=== PATIENT | female | born 1960 | race Caucasian/White ===

== ENCOUNTER 2016-12-23 21:58 | Emergency (ER) | payer OTHER ==
--- NOTE | 2016-12-23 22:27 | ERNOTE ---
Dyspnea - Date Date of Service: 12/23/16 - General Presenting Symptoms: shortness of breath, other - dry cough Source: patient - Immun/Allergies/Home Medications Immunizations: IMMUNIZATION HX Immunizations Up to Date No History of Influenza Vaccine No Hx Pneumococcal Vaccination No Allergies/Adverse Reactions: Allergies nitrofurantoin [From Macrobid] Allergy (Severe, Verified 10/29/16 17:58) Hives nitrofurantoin macrocrystalline [From Macrobid] Allergy (Severe, Verified 17:58) Hives, fever Tetanus Vaccines & Toxoid [Tetanus] Allergy (Severe, Verified 10/29/16 17:58) fever fever, swelling amitriptyline Adverse Reaction (Severe, Verified 10/29/16 17:58) Suicidal, hospitalized metformin Adverse Reaction (Severe, Verified 10/29/16 17:58) Rash morphine Adverse Reaction (Severe, Verified 10/29/16 17:58) Vomiting Home Medications: HOME MEDICATIONS glipiZIDE [Glucotrol] 5 mg PO BIDAC 04/10/15 [Last Taken 07/16/16 07:00] Atorvastatin Calcium [Lipitor] 10 mg PO DAILY 09/04/15 [Last Taken 07/16/16 07: 00] Insulin NPH Hum/Reg Insulin Hm [Humulin 70-30] 16 unit SC BID 07/09/16 [Last Taken 07/16/16 07:00] Cyclobenzaprine HCl [Flexeril] 10 mg PO DAILY 10/25/16 [Last Taken Unknown] Rivaroxaban [Xarelto] 20 mg PO DAILY 10/25/16 [Last Taken Unknown] Sertraline HCl [Zoloft] 50 mg PO DAILY 10/25/16 [Last Taken Unknown] Albuterol Sulfate [Proventil Hfa] 6.7 gm IH PRN PRN #1 [email or web address] 12/23/16 [ Last Taken Unknown] - History of Present Illness Narrative: Here for swelling in right ankle for two months. Shortness of breath and cough for two weeks Review of Systems - Review of Systems Constitutional: Present: See HPI EYE: Present: see HPI ENT: Present: See HPI Respiratory: Present: See HPI Cardiology: Present: no symptoms reported Gastrointestinal/Abdominal: Present: See HPI - Patient's Past Medical History Patient History - Medical: Diabetes Type 2, Hypothyroidism, Kidney stone, Obesity, Other Patient History - Cardiac/Respiratory: Hypertension, Hyperlipidemia, Pulmonary Embolism Patient History - Cancer: No Hx of Cancer Patient History - Surgical Procedures: Appendectomy, Colonoscopy, , EGD , T & A Patient History - Other: None LMP (Calendar): 06/08/16 - Family History Father Family History - Medical: Family History - Cardiac/Respiratory: CHF, Myocardial Infarction Mother Family History - Medical: Diabetes Type 2 Insulin Dependent Family History - Cardiac/Respiratory: COPD - Social History Living Situations: home Abuse History: No History of abuse Psych History: Hx of Anxiety, Hx of Depression Smoking Status: Never smoker Alcohol Use: none Drug Use: none - Immunizations Immunizations Up to Date: No Hx Pneumococcal Vaccination: No History of Influenza Vaccine: No Physical Exam - Physical Exam Narrative: pt is morbidly obese General Appearance: Present: wd/wn, alert, no apparent distress Eye Exam: Normal inspection: bilateral, PERRL: bilateral, EOMI: bilateral Ears, Nose, Throat: Present: normal ENT inspection, hearing grossly normal Neck: Present: normal inspection, nontender Respiratory: Present: no respiratory distress, normal breath sounds, no accessory muscle use, other - no respiratory distress. PT is at 96 % at room air. She has NO wheezing anywhere. Cardiovascular/Chest: Present: regular rate, rhythm Extremity Exam: Present: non-tender - Bilateral dependent edema noted. This is NOT an acute finding ED Progress - Results and Orders Patient's Lab Results:: I have reviewed the patient's lab results. - Vital Signs Patient's Vital Signs:: I have reviewed the patient's vital signs. Vital Signs: Vital Signs 12/23/16 22:05 Temperature 36.6 C Pulse Rate 99 Respiratory 22 H Rate Blood Pressure 149/81 O2 Sat by Pulse 96 Oximetry - X-Ray X-Ray #1 X-Ray: chest - Progress/Reassessment Chief Complaint: Dyspnea Plan - Plan Plan: All tests are negative , ddimer is negative Troponin is negative CXR is normal. Will Rx an inhaler but pt appears to be stable at this time Departure Clinical Impression: Cough Allergic reaction Qualifiers: Encounter type: initial encounter Qualified Code(s): T78.40XA - Allergy, unspecified, initial encounter - Departure Disposition: Home self-care Condition: Good Instructions: Cough, Adult, [id number] Prescriptions: Albuterol Sulfate [Proventil Hfa] 6.7 gm IH PRN PRN #1 [email or web address] PRN Reason: Cough
[2016-12-23 22:43] LABS: Hematocrit 47.6 % (37.0-47.0); Hemoglobin 15.5 gm/dL (12.5-16.0); Mean Cell Volume 84.5 fl (78-100); Mean Corpuscular Hemoglobin 27.5 pg (27-31); Mean Corpuscular Hgb Conc 32.6 g/dl (32-36); Neutrophil # 6.1 K/mm3 (1.3-6.0); Neutrophil % 69.5 % (42-75.0); Platelet Count 141 K/mm3 (150-450); Red Blood Count 5.63 M/mm3 (4.2-5.4); Red Cell Distribution Width 14.3 % (11.5-14.0); White Blood Count 8.8 K/mm3 (4.0-10.5)
[2016-12-23 23:02] LABS: Troponin I Less than 0.017 ng/ml (0.00-0.10)
[2016-12-23 23:06] LABS: ALT 41 U/L (19-67); AST 28 U/L (0-48); Albumin * 3.4 gm/dl (3.4-5.0); Alkaline Phosphatase * 143 U/L (50-170); Anion Gap 16.7 mmol/L (6.8-13.8); BNP * 13 pg/mL (5-150); BUN/Creatinine Ratio 19.5 (9.0-21.6); Bilirubin, Total 0.5 mg/dL (0.0-1.1); Blood Urea Nitrogen 16 mg/dL (3-23); CKMB 1.2 ng/mL (0.0-9.0); Ca. Corrected For Albumin 9.5 mg/dL (8.4-10.2); Calcium * 9.3 mg/dL (7.9-10.9); Carbon Dioxide 23.6 mmol/L (24-32.6); Chloride 99 mmol/L (97-106); Glucose * 433 mg/dL (70-110); Potassium 4.3 mmol/L (3.4-4.6); Sodium 135 mmol/L (132-142); Total Protein 7.4 gm/dL (6.2-8.2)
[2016-12-24 06:57] VITALS: BP 134/77
== END 2016-12-23 23:40 | disposition home or self-care (01) ==
LOC: ER 21:58
DX: T78.40XA Allergy, unspecified, initial encounter (principal); R05 Cough; Z87.442 Personal history of urinary calculi

== ENCOUNTER 2017-01-03 09:35 | Emergency (ER) | payer OTHER ==
[2017-01-03] MEDS ORDERED: KETOROLAC TROMETHAMINE 60 MG/2 ML VIAL IM ONE ×2 (10:14→10:17)
[2017-01-03] MEDS ORDERED: DIAZEPAM 5 MG/ML SYRG IM ONE (10:14)
[2017-01-03] MEDS ORDERED: DIAZEPAM 5 MG/ML SYRG ONE (10:16)
--- OUTSIDE RECORDS SUMMARY | 2017-01-03 10:21 | XMS REPORT | Continuity of Care Document ---
:1960 Author Organization [facility] ([facility]) Address [address] [place] [address] Phone [phone] Care Team Providers Name Role Phone Jorge Perkins Primary Care Provider [phone] Source Comments This disclosure is being made pursuant to the Care Everywhere program, applicable federal and state laws, and may not contain all informaitonavailable regarding this patient.[facility] ([facility]) Active Allergies and Adverse Reactions Allergen Noted Date Severity Reactions Comments Metformin 12/28/2016 Rash Morphine 12/28/2016 OTHER Nitrofurantoin Monohyd/M-Cryst 01/01/2013 Urticaria (Hives) Tetanus Toxoid 01/01/2013 Fever Made very sick Current Medications Prescription Sig. Disp. Refills Start End Status Date Date acetaminophen Take 325 mg by Active (TYLENOL) 325 mg mouth every 4 tablet hours as needed. gabapentin 300 mg Take 2 Caps by 360 Cap 2 Active capsule mouth 3 times 3 daily. Indications: NEUROPATHIC PAIN cyclobenzaprine 10 Take 1 Tab by 90 Tab 1 Active mg tablet mouth every 8 3 hours as needed. Indications: acute LBP rivaroxaban Take 20 mg by Active (XARELTO) 20 mg mouth every tablet evening with dinner. atorvastatin 10 mg Take 1 tablet by Active tablet mouth daily. 6 furosemide 40 mg Take 40 mg by Active tablet mouth daily. potassium chloride Take 10 mEq by Active 10 mEq XR tablet mouth daily. traMADol 50 mg Take 50 mg by Active tablet mouth 4 times daily as needed. losartan-hydrochlor Take 1 tablet by Active othiazide 100-25 mg mouth daily. per tablet ascorbic acid Take 1,000 mg by Active (vitamin C) mouth daily. (VITAMIN C) 1,000 mg tablet SUPPLY FREESTYLE 1 Strip 4 times 150 Strip 6 Active LITE test strips daily. As 7 directed. SUPPLY insulin Inject 1 Units 100 Syringe 6 Active syringe w/ needle subcutaneously 3 7 U-100 (BD INSULIN times daily. SYRINGE ULT-FINE II) 1 mL 31 g x 5/16" SUPPLY FREESTYLE Take 1 Units as 120 Each 6 Active lancets directed 4 times 7 daily. Insulin Dependent glipiZIDE 10 mg Take 2 tablets (20 120 tablet 6 Active tablet mg total) by mouth 7 2 times daily with meals. insulin nph-regular Inject 160 Units 50 mL 6 Active (HumuLIN 70/30) 100 subcutaneously 7 unit/mL injection daily. Take vial 80-20-60 units TID for total of 160. SUPPLY FREESTYLE by In Vitro route 150 Strip 5 Discontinued LITE test strips 2 times daily. As 3 017 directed. Indications: TYPE 2 DIABETES MELLITUS ketoconazole 2 % apply topically 2 240 mL 2 Discontinued shampoo times weekly. 3 017 Allow 3 days between application Indications: DANDRUFF SUPPLY insulin pen inject 100 Each 11 Discontinued needle (LITE TOUCH subcutaneously 2 3 017 INSULIN PEN times daily. Mail NEEDLES) 29 x 12.7 out this and the MM insulin. Indications: TYPE 2 DIABETES MELLITUS nortriptyline 25 mg Take 1 Cap by 60 Cap 2 Discontinued capsule mouth at bedtime. 3 017 Indications: NEUROPATHIC PAIN naproxen 500 mg Take 1 Tab by 60 Tab 1 Discontinued tablet mouth 2 times 3 017 daily with meals. Indications: PAIN lisinopril 5 mg Take 1 Tab by 60 Tab 3 Discontinued tablet mouth daily. 3 017 Indications: HYPERTENSION glipiZIDE 5 mg Take 2 Tabs by 240 Tab 3 Discontinued tablet mouth 2 times 3 017 daily with meals. Indications: TYPE 2 DIABETES MELLITUS insulin glargine inject 40 Units 7 Each 5 Discontinued (LanTUS SOLOSTAR) subcutaneously at 3 017 100 unit/mL (3 mL) bedtime. Dose injection pen increased. Indications: TYPE 2 DIABETES MELLITUS insulin nph-regular Inject 0.16 mL ( Discontinued (HumuLIN 70/30) 100 Units total) under 6 017 unit/mL injection the skin daily vial with breakfast. insulin nph-regular Inject 160 Units 50 mL 6 Discontinued (HumuLIN 70/30) 100 subcutaneously 7 017 unit/mL injection daily. Take vial 60-20-80 units TID for total of 160. Active Problems Problem Noted Date Type 2 diabetes mellitus with diabetic polyneuropathy, with long-term 2016 current use of insulin Myopia with astigmatism and presbyopia 02/02/2013 Diabetes mellitus type 2 in obese 01/02/2013 Morbid obesity 01/02/2013 Acute low back pain 01/02/2013 Healthcare maintenance 01/02/2013 Health education/counseling 01/02/2013 Esophageal abnormality 01/02/2013 Most Recent Encounters Date Type Specialty Providers Description 12/28/2016 Office Visit Diabetes Services Default, Other Billg Subj: Appointment - Defo Scheduled Everardo Harman MD 12/28/2016 Office Visit Diabetes Services Default, Other Billg Dx: Type 2 diabetes - Defo mellitus with diabetic Everardo Harman MD polyneuropathy, with Sharlene Maria, long-term current use PA-C of insulin (Primary Dx) 12/28/2016 Office Visit Diabetes Services Default, Other Billg Subj: Upcoming Appt - Defo Reminder Elda Lopez RD LD Social History Tobacco Use Types Packs/Day Years Used Date Never Smoker Smokeless Tobacco: Never Used Alcohol Use Drinks/Week oz/Week Comments No Last Filed Vital Signs Vital Sign Reading Time Taken Blood Pressure 117/76 12/28/2016 8:50 AM [facility]ILLER [facility]EDER Pulse 91 12/28/2016 8:50 AM F[facility]ER [facility]ER Temperature 36.5 C (97.7 F) 11/05/2013 8:18 AM FILLER FEEDER Respiratory Rate 16 06/10/2013 8:26 AM CDT Height 1.71 m (5' 7.32") 12/28/2016 8:50 AM F[facility]ER [employer]EDER Weight 141.1 kg (311 lb 1.1 oz) 12/28/2016 8:50 AM F[facility]ER FEEDER Body Mass Index 48.25 12/28/2016 8:50 AM F[facility]ER FEEDER Oxygen Saturation 97% 06/10/2013 8:26 AM CDT Plan of Care Patient Goal Type Goal Weight Weight below 91 kg (200 lb) Date Type Specialty Providers Description 02/18/2017 Appointment Diabetes Services Everardo Harman MD [address] [place] [address] [phone] (Fax) Subj: Appointment Sharlene Maria PA-C [address] [place] [address] [phone] (Fax) Scheduled 02/18/2017 Appointment Diabetes Services Elda Lopez RD Subj: Appointment LD Scheduled [address] [facility] [address] [place] [address] [phone] (Fax) Health Maintenance Due Date Last Done Comments HCV Screening 1960 Hepatitis B Vaccine (1 of 3 - 1960 Primary Series) MMR Vaccine 1980 Pneumococcal Vaccine (1 of 1 1981 - PPSV23) Cervical Cancer Screening 1992 Colonoscopy 05/23/2012 FOBT Colon Cancer Screening 2012 Sigmoidoscopy Colon Cancer 2012 Screening DIABETIC: Cholesterol 01/02/2014 01/02/2013 DIABETIC: Foot Exam 01/02/2014 01/02/2013, 01/02/2013 Diabetic: Hdl 01/02/2014 01/02/2013 Diabetic: Ldl 01/02/2014 01/02/2013 DIABETIC: Microalbumin 01/02/2014 01/02/2013 DIABETIC: Retinal Eye Exam 02/02/2014 02/02/2013, 02/02/2013 Mammogram 03/02/2014 03/02/2013 DIABETIC: Triglycerides 03/25/2014 03/25/2013, 01/02/2013 DIABETIC: Hemoglobin A1C 05/06/2014 11/05/2013, Additional history exists 08/06/2013, 03/25/2013 Influenza Vaccine: Seasonal 06/18/2016 (#1) Results from Last 3 Months Not on file
[2017-01-03 10:45] VITALS: BP 122/80
--- NOTE | 2017-01-03 10:49 | ERNOTE ---
Back Pain ER HPI Date of Service: 01/03/17 Presenting Symptoms: hx chronic back pain Time Seen by Provider: 01/03/17 10:04 Source: patient, family, RN notes reviewed Exam Limitations: no limitations Immunizations: IMMUNIZATION HX Immunizations Up to Date No History of Influenza Vaccine No Hx Pneumococcal Vaccination No Allergies/Adverse Reactions: Allergies nitrofurantoin [From Macrobid] Allergy (Severe, Verified 01/03/17 09:47) Hives nitrofurantoin macrocrystalline [From Macrobid] Allergy (Severe, Verified 09:47) Hives, fever Tetanus Vaccines & Toxoid [Tetanus] Allergy (Severe, Verified 01/03/17 09:47) fever fever, swelling amitriptyline Adverse Reaction (Severe, Verified 01/03/17 09:47) Suicidal, hospitalized metformin Adverse Reaction (Severe, Verified 01/03/17 09:47) Rash morphine Adverse Reaction (Severe, Verified 01/03/17 09:47) Vomiting Home Medications: HOME MEDICATIONS glipiZIDE [Glucotrol] 10 mg PO BIDAC 04/10/15 [Last Taken 07/16/16 07:00] Atorvastatin Calcium [Lipitor] 10 mg PO DAILY 09/04/15 [Last Taken 07/16/16 07: 00] Insulin NPH Hum/Reg Insulin Hm [Humulin 70-30] 0 unit SC TID 07/09/16 [Last Taken 07/16/16 07:00] Cyclobenzaprine HCl [Flexeril] 10 mg PO DAILY 10/25/16 [Last Taken Unknown] Rivaroxaban [Xarelto] 20 mg PO DAILY 10/25/16 [Last Taken Unknown] Albuterol Sulfate [Proventil Hfa] 6.7 gm IH PRN PRN #1 hfa.aer.ad 12/23/16 [ Last Taken Unknown] Furosemide [Lasix] 40 mg PO DAILY 01/03/17 [Last Taken Unknown] HYDROcodone/ACETAMINOPHEN [[place] 5-325] 1 - 2 tab PO Q6H PRN #20 tab 01/03/17 [ Last Taken Unknown] Losartan/Hydrochlorothiazide [Losartan-Hctz 100-12.5 mg Tab] 1 each PO DAILY [Last Taken Unknown] Potassium Chloride 10 meq PO DAILY 01/03/17 [Last Taken Unknown] Tizanidine HCl 4 mg PO Q8H PRN #30 cap 01/03/17 [Last Taken Unknown] traMADol HCL [Ultram] 50 mg PO QID PRN 01/03/17 [Last Taken Unknown] Narrative: 56 y/o female ambulatory to the ED for low back pain. She has chronic low back pain and had a MRI approximately 3 months ago that showed degenerative changes. No treatment was done at that time. She states she cannot have an SKINNY because she is anticoagulated on Xarelto. She began having more pain than usual a few days ago after a long car ride. Over the past 2 days the pain has become severe. She has been taking Tramadol and Flexeril without improvement. She reports that her pain is in the same location as usual, but is more severe than it has been in the past. Timing: Reports: constant Quality/Severity: Reports: severe, aching Location of pain: Reports: lower back, radiating to rt thigh/leg, radiating to lf thigh/leg Recent Injury?: Reports: no Associated Symptoms: Reports: difficulty walking, numbess/weakness in legs - has chronic neuropathy. Denies: fever/chills, sweating, constipation/ incontinence, nausea/vomiting, problems urinating, lightheadedness Prior Treament: Reports: recently seen Review of Systems - Review of Systems Constitutional: Absent: recent illness, fever EYE: Present: no symptoms reported ENT: Present: no symptoms reported Respiratory: Present: cough. Absent: shortness of breath Cardiology: Absent: chest pain, syncope Gastrointestinal/Abdominal: Absent: nausea, vomiting, diarrhea, abdominal pain Genitourinary: Absent: dysuria, hematuria Musculoskeletal: Present: back pain, neck pain. Absent: joint swelling Skin: Absent: rash, lesions, lumps Neurological: Present: weakness, numbness, tingling, pre-existing deficit Endocrine: Present: no symptoms reported Hematologic/Lymphatic: Present: no symptoms reported Psych: Present: no symptoms reported - Patient's Past Medical History Patient History - Medical: Chronic Pain, Diabetes Type 2 Insulin Dependent, Hypothyroidism, Kidney stone, Obesity, Other Patient History - Cardiac/Respiratory: Hypertension, Hyperlipidemia, Pulmonary Embolism Patient History - Cancer: No Hx of Cancer Patient History - Surgical Procedures: Appendectomy, Colonoscopy, , EGD , T & A Patient History - Other: None LMP (Calendar): 06/08/16 - Family History Father Family History - Medical: Family History - Cardiac/Respiratory: CHF, Myocardial Infarction Mother Family History - Medical: Diabetes Type 2 Insulin Dependent Family History - Cardiac/Respiratory: COPD - Social History Living Situations: spouse Abuse History: No History of abuse Psych History: Hx of Anxiety, Hx of Depression Smoking Status: Never smoker Alcohol Use: none Drug Use: none - Immunizations Immunizations Up to Date: No Hx Pneumococcal Vaccination: No History of Influenza Vaccine: No Physical Exam - Physical Exam General Appearance: Present: alert, mild distress, obese, crying, other - appears older than stated age Respiratory: Present: no respiratory distress, normal breath sounds, no accessory muscle use, lungs clear Cardiovascular/Chest: Present: regular rate, rhythm, no murmur Back Exam: Present: no CVA tenderness, vertebral tenderness - lumbar region with bilateral paraspinal muscle tenderness, decreased range of motion, muscle spasm Extremity Exam: Present: non-tender, normal range of motion, extremity edema Neurological Exam: Present: alert, oriented, normal mood/affect. Absent: no motor/sensory deficits - decreased sensation in lower extremities - reports is chronic, has normal strength against resistance in legs Skin Exam: Present: normal color, warm/dry ED Progress - Vital Signs Patient's Vital Signs:: I have reviewed the patient's vital signs. Vital Signs: Vital Signs 01/03/17 09:42 Temperature 36.7 C Pulse Rate 99 Respiratory 16 Rate Blood Pressure 124/83 O2 Sat by Pulse 98 Oximetry - Progress/Reassessment Chief Complaint: Back Pain Progress:: Improved Progress Note-Subjective: 01/03/17 11:09 Some improvement in pain with Toradol and Valium. [place] ordered prior to d/c. Will give rx for short term - patient actually does not want to take opiate pain medications but discussed appropriate use. Will also try Zanaflex instead of Flexeril. Discussed need to see PCP for f/u in a few days for further treatment options for her chronic back pain - recommended PT. Departure Clinical Impression: Low back pain Qualifiers: Chronicity: chronic Back pain laterality: bilateral Sciatica presence: with sciatica Sciatica laterality: bilateral sciatica Qualified Code(s): M54.42 - Lumbago with sciatica, left side Peripheral neuropathy Qualifiers: Peripheral neuropathy type: polyneuropathy, unspecified Qualified Code(s): G62.9 - Polyneuropathy, unspecified - Departure Disposition: Home Follow Up Needed Condition: Stable Instructions: Back Pain, Adult Additional Instructions: Do not take Tramadol and [place] together [place] can cause constipation Try tizanidine in place of Flexeril - start with a half of a tablet. May cause drowsiness. Schedule f/u with your doctor in the next few days to re-evaluate back pain and further treatment options Referrals: [Primary Care Provider] - Prescriptions: HYDROcodone/ACETAMINOPHEN [[place] 5-325] 1 - 2 tab PO Q6H PRN #20 tab PRN Reason: Pain Tizanidine HCl 4 mg PO Q8H PRN #30 cap PRN Reason: MUSCLE SPASMS
[2017-01-03] MEDS ORDERED: HYDROcodone/ACETAMINOPHEN 1 EACH TABLET PO ONE (11:09)
[2017-01-03] MEDS ORDERED: HYDROcodone/ACETAMINOPHEN 1 EACH TABLET ONE (11:11)
== END 2017-01-03 11:20 | disposition home or self-care (01) ==
LOC: ER 09:35
DX: M54.42 Lumbago with sciatica, left side (principal); G62.9 Polyneuropathy, unspecified; I10 Essential (primary) hypertension; E11.9 Type 2 diabetes mellitus without complications; Z79.4 Long term (current) use of insulin; E78.5 Hyperlipidemia, unspecified

== ENCOUNTER 2017-03-21 19:35 | Emergency (ER) | payer OTHER ==
--- NOTE | 2017-03-21 20:05 | ERNOTE ---
Medical Problem HPI - General Chief Complaint: General Assessment Time Seen by Provider: 03/21/17 20:04 Source: patient - Immun/Allergies/Home Medications Immunizations: IMMUNIZATION HX Immunizations Up to Date Yes History of Influenza Vaccine No Hx Pneumococcal Vaccination No Allergies/Adverse Reactions: Allergies nitrofurantoin [From Macrobid] Allergy (Severe, Verified 01/03/17 09:47) Hives nitrofurantoin macrocrystalline [From Macrobid] Allergy (Severe, Verified 09:47) Hives, fever Tetanus Vaccines and Toxoid [Tetanus] Allergy (Severe, Verified 01/03/17 09:47) fever fever, swelling amitriptyline Adverse Reaction (Severe, Verified 01/03/17 09:47) Suicidal, hospitalized metformin Adverse Reaction (Severe, Verified 01/03/17 09:47) Rash morphine Adverse Reaction (Severe, Verified 01/03/17 09:47) Vomiting gabapentin Adverse Reaction (Verified 03/21/17 19:42) lisinopril Adverse Reaction (Verified 03/21/17 19:43) Home Medications: HOME MEDICATIONS glipiZIDE [Glucotrol] 10 mg PO BIDAC 04/10/15 [Last Taken 07/16/16 07:00] Atorvastatin Calcium [Lipitor] 10 mg PO DAILY 09/04/15 [Last Taken 07/16/16 07: 00] Insulin NPH Hum/Reg Insulin Hm [Humulin 70-30] 0 unit SC TID 07/09/16 [Last Taken 07/16/16 07:00] Rivaroxaban [Xarelto] 20 mg PO DAILY 10/25/16 [Last Taken Unknown] Furosemide [Lasix] 40 mg PO DAILY 01/03/17 [Last Taken Unknown] Losartan/Hydrochlorothiazide [Losartan-Hctz 100-12.5 mg Tab] 1 each PO DAILY [Last Taken Unknown] Potassium Chloride 10 meq PO DAILY 01/03/17 [Last Taken Unknown] tiZANidine HCL [Tizanidine HCl] 4 mg PO Q8H PRN #30 cap 01/03/17 [Last Taken Unknown] traMADol HCL [Ultram] 50 mg PO QID PRN 01/03/17 [Last Taken Unknown] - History of Present History Narrative: earlier on today patient felt that her vision was blurry. Denies any chest pains , headaches, blurry vision NOW, or any other neurological problems. is worried about this transient change in vision even tho it has completely resolved. Pt denies any symptoms at this time. Review of Systems - Review of Systems Constitutional: Present: no symptoms reported EYE: Present: see HPI ENT: Present: no symptoms reported Respiratory: Present: no symptoms reported Cardiology: Present: no symptoms reported Gastrointestinal/Abdominal: Present: no symptoms reported Genitourinary: Present: no symptoms reported Musculoskeletal: Present: no symptoms reported Skin: Present: no symptoms reported Neurological: Present: no symptoms reported - Patient's Past Medical History Patient History - Medical: Anxiety, Chronic Pain, Diabetes Type 2 Insulin Dependent, Depression, Hypothyroidism, Kidney stone, Obesity, Other Patient History - Cardiac/Respiratory: Hypertension, Hyperlipidemia, Pulmonary Embolism Patient History - Cancer: No Hx of Cancer Patient History - Surgical Procedures: Appendectomy, Colonoscopy, , EGD , T & A Patient History - Other: None LMP (females 10-50): 2 months LMP (Calendar): 06/08/16 - Family History Father Family History - Medical: Family History - Cardiac/Respiratory: CHF, Myocardial Infarction Mother Family History - Medical: Diabetes Type 2 Insulin Dependent Family History - Cardiac/Respiratory: COPD - Social History Living Situations: home Abuse History: No History of abuse Psych History: Hx of Anxiety, Hx of Depression Smoking Status: Never smoker Alcohol Use: none Drug Use: none - Immunizations Immunizations Up to Date: Yes Hx Pneumococcal Vaccination: No History of Influenza Vaccine: No Physical Exam - Physical Exam General Appearance: Present: wd/wn, alert, no apparent distress - pt is morbidly obese Ears, Nose, Throat: Present: normal ENT inspection, normal pharynx Neck: Present: normal inspection, nontender, supple, full range of motion Respiratory: Present: no respiratory distress, normal breath sounds, no accessory muscle use, chest nontender, lungs clear Cardiovascular/Chest: Present: regular rate, rhythm, no murmur, normal peripheral pulses Gastrointestinal/Abdominal: Present: normal bowel sounds Extremity Exam: Present: normal inspection, non-tender, normal range of motion, no edema Neurological Exam: Present: alert, oriented, normal mood/affect, no motor/ sensory deficits, other - normal facies, alert and oriented X 4, She remembers me from last visit. ED Progress - Vital Signs Patient's Vital Signs:: I have reviewed the patient's vital signs. Vital Signs: Vital Signs 03/21/17 19:40 Temperature 37 C Pulse Rate 78 Respiratory 20 Rate Blood Pressure 138/72 O2 Sat by Pulse 96 Oximetry - CT/Ultrasound CT/Ultrasound Narrative: Ct ordered and reviewed - Progress/Reassessment Chief Complaint: General Assessment Plan - Plan Plan: CT of head is normal and pt has remained completely neurologically normal and at baseline in this ED Departure - Departure Clinical Impression: Blurry vision Disposition: Home self-care Condition: Good Referrals: Jorge Perkins MD [Primary Care Provider] -
--- OUTSIDE RECORDS SUMMARY | 2017-03-21 20:15 | XMS REPORT | Continuity of Care Document ---
:1960 Author Organization [facility] [place] [address] Care Team Providers Name Role Phone Jorge Perkins Primary Care Provider [phone] Source Comments This disclosure is being made pursuant to the TravelPi program and maynot contain all information available regarding this patient.[facility] Active Allergies and Adverse Reactions Allergen Noted Date Severity Reactions Comments Amitriptyline 03/21/2017 Low Anxiety Anger issues. Gabapentin 03/20/2017 Other (See Comments) Pancreatitis Lisinopril 03/20/2017 Unknown Macrobid 03/20/2017 Unknown Metformin 03/20/2017 Unknown Morphine 03/20/2017 Other (See Comments) sweats Tetanus Antitoxin 03/20/2017 Unknown Current Medications Be aware that medications may not be up to date as of this document. Alwaysverify current medications with the patient. Prescription Sig. Disp. Refills Start Date End Date Status Insulin Syringe-Needle Active U-100 (INSULIN SYRINGE 1CC/30GX5/16") 30G X 5/16" 1 ML MISC Unclassified (UNABLE TO Durable Medical Active FIND) Equipment, Water therapy 3 times/ week for 6 weeks due to cervical radiculopathy. Insulin Syringe-Needle Use with Novolin Active U-100 (INSULIN SYRINGE 70/30 twice daily as .5CC/30GX5/16") 30G X directed. 5/16" 0.5 ML MISC glipiZIDE (GLUCOTROL) 5 Take 10 mg by mouth Active MG tablet 2 (two) times daily before meals. glucose monitoring kit Check blood sugars Active (FREESTYLE) monitoring daily. kit glucose blood (FREESTYLE Check blood sugars Active LITE) test strip daily. Lancets (UNILET LANCET) Use to test blood Active MISC sugar once daily. polyethylene glycol Take 17 g by mouth Active (GLYCOLAX) packet daily. With 8 oz of water, juice, soda, coffee, or tea BID INS SYRINGE/NEEDLE Use to inject Active 1CC/28G (B-D INSULIN insulin twice daily. SYRINGE 1CC/28G) 28G X 1/2" 1 ML MISC losartan-hydrochlorothia Take 1 tablet by Active zide (HYZAAR) 100-25 MG mouth daily. per tablet furosemide (LASIX) 40 MG Take 40 mg by mouth Active tablet daily. POTASSIUM PO Take by mouth. Active traMADol (ULTRAM) 50 MG Take 50 mg by mouth Active tablet every 6 (six) hours as needed for Pain. insulin NPH-insulin Inject 74 Units in Active regular (HUMULIN 70/30) AM, 44 Units at (70-30) 100 UNIT/ML noon, and 90 Units injection - vial in PM tizanidine (ZANAFLEX) 2 Take 2 mg by mouth Active MG tablet every 8 (eight) hours as needed (Not to exceed 3 doses in 24 hours.). atorvastatin (LIPITOR) Take 10 mg by mouth Active 10 MG tablet daily. insulin aspart Inject 74 Units in Active protamine-insulin aspart AM, 44 Units at (NOVOLOG MIX 70/30) noon, and 90 Units (70-30) 100 UNIT/ML in PM. injection - vial rivaroxaban (XARELTO) 20 Take 20 mg by mouth Active MG TABS tablet daily with supper. Hospital, Clinic, or Other Ordered Dose Route Frequency Start Date End Date Status Facility Administered Medication triamcinolone acetonide 40mg IX Once 03/21/2017 03/21/2017 Ended (KENALOG-40) injection Active Problems Problem Noted Date Primary osteoarthritis of right shoulder 03/21/2017 Most Recent Encounters Date Type Specialty Providers Description 03/21/2017 Office Visit Orthopedic Surgery Shreya, Primary osteoarthritis MD Idris of right shoulder (Primary Dx) 03/20/2017 Orders Only Orthopedic Surgery Sapna Ravi Right shoulder pain, Pauline, RN unspecified chronicity (Primary Dx) 03/20/2017 Abstract Orthopedic Surgery Sapna Ravi RN Social History Tobacco Use Types Packs/Day Years Used Date Never Smoker Alcohol Use Drinks/Week oz/Week Comments No Last Filed Vital Signs Vital Sign Reading Time Taken Blood Pressure 120/76 03/21/2017 9:30 AM CDT Pulse 79 03/21/2017 9:30 AM CDT Temperature - - Respiratory Rate 16 03/21/2017 9:30 AM CDT Height 1.676 m (5' 6") 03/21/2017 9:30 AM CDT Weight 137.531 kg (303 lb 3.2 oz) 03/21/2017 9:30 AM CDT Body Mass Index 48.96 03/21/2017 9:30 AM CDT Oxygen Saturation 96% 03/21/2017 9:30 AM CDT Plan of Care Health Maintenance Due Date Last Done Comments Lab-Lipids 1960 LAB-HgA1C 1967 Eye (Ophthalmology) Exam 1972 Foot Exam 1972 Lab-Urine Microalbumin 1972 Hepatitis C Screening 1980 Tetanus/Pertussis (1 - Tdap) 1981 Pap Smear 1983 Colonoscopy 2012 Mammogram 2012 Well Adult Visit 2012 Influenza Immunization (#1) 2016 Results from Last 3 Months Not on file
--- OUTSIDE RECORDS SUMMARY | 2017-03-21 20:15 | XMS REPORT | Continuity of Care Document ---
:1960 Author Organization [facility] ([facility]) Address [address] [place] [address] Phone [phone] Care Team Providers Name Role Phone Jorge Perkins Primary Care Provider [phone] Source Comments This disclosure is being made pursuant to the Care Everywhere program, applicable federal and state laws, and may not contain all informaitonavailable regarding this patient.[facility] ([facility]) Active Allergies and Adverse Reactions Allergen Noted Date Severity Reactions Comments Metformin 12/28/2016 Rash Morphine 12/28/2016 OTHER Nitrofurantoin Monohyd/M-Cryst 01/01/2013 Urticaria (Hives) Tetanus Toxoid 01/01/2013 Fever Made very sick Current Medications Prescription Sig. Disp. Refills Start Date End Date Status acetaminophen Take 325 mg by Active (TYLENOL) 325 mg mouth every 4 hours tablet as needed. gabapentin 300 mg Take 2 Caps by 360 Cap 2 11/05/2013 Active capsule mouth 3 times daily. Indications: NEUROPATHIC PAIN cyclobenzaprine 10 Take 1 Tab by mouth 90 Tab 1 11/05/2013 Active mg tablet every 8 hours as needed. Indications: acute LBP rivaroxaban Take 20 mg by mouth Active (XARELTO) 20 mg every evening with tablet dinner. atorvastatin 10 mg Take 1 tablet by 06/03/2016 Active tablet mouth daily. furosemide 40 mg Take 40 mg by mouth Active tablet daily. potassium chloride Take 10 mEq by Active 10 mEq XR tablet mouth daily. traMADol 50 mg Take 50 mg by mouth Active tablet 4 times daily as needed. losartan-hydrochloro Take 1 tablet by Active thiazide 100-25 mg mouth daily. per tablet ascorbic acid Take 1,000 mg by Active (vitamin C) (VITAMIN mouth daily. C) 1,000 mg tablet SUPPLY FREESTYLE 1 Strip 4 times 150 Strip 6 12/28/2016 Active LITE test strips daily. As directed. SUPPLY insulin Inject 1 Units 100 Syringe 6 12/28/2016 Active syringe w/ needle subcutaneously 3 U-100 (BD INSULIN times daily. SYRINGE ULT-FINE II) 1 mL 31 g x 5/16" SUPPLY FREESTYLE Take 1 Units as 120 Each 6 12/28/2016 Active lancets directed 4 times daily. Insulin Dependent glipiZIDE 10 mg Take 2 tablets (20 120 tablet 6 12/28/2016 Active tablet mg total) by mouth 2 times daily with meals. insulin nph-regular Inject 70 mL 11 02/14/2017 Active (HumuLIN 70) 100 subcutaneously 74 unit/mL injection units at breakfast, vial 44 units at lunch and 90 units at dinner. Active Problems Problem Noted Date Type 2 diabetes mellitus with diabetic polyneuropathy, with long-term 2016 current use of insulin Myopia with astigmatism and presbyopia 02/02/2013 Diabetes mellitus type 2 in obese 01/02/2013 Morbid obesity 01/02/2013 Acute low back pain 01/02/2013 Healthcare maintenance 01/02/2013 Health education/counseling 01/02/2013 Esophageal abnormality 01/02/2013 Most Recent Encounters Date Type Specialty Providers Description 03/12/2017 Telephone Diabetes Services Kacie Veloz RN Chief Comp: Diabetes 02/20/2017 Telephone Diabetes Services Milagros Fung, Chief Comp: Follow-up RN 02/18/2017 Office Visit Diabetes Services Elda Lopez RD Subj: Appointment LD Scheduled 02/18/2017 Office Visit Diabetes Services Everardo Harman, Subj: Appointment MD Scheduled Sharlene Maria, TRISTIN-C 02/11/2017 Refill Diabetes Services Sharlene Maria, Dx: Type 2 diabetes PA-C mellitus with diabetic polyneuropathy, with long-term current use of insulin (Primary Dx) 01/22/2017 Pharmacy Visit 01/22/2017 Refill Diabetes Services Sharlene Maria, Dx: Type 2 diabetes PA-C mellitus with diabetic polyneuropathy, with long-term current use of insulin (Primary Dx) 01/22/2017 Telephone Diabetes Services Milagros Fung, Chief Comp: Follow-up RN 01/10/2017 Telephone Diabetes Services Milagros Fung, RN 01/10/2017 Telephone Diabetes Services Milagros Fung, Chief Comp: Follow-up RN 12/28/2016 Office Visit Diabetes Services Default, Other Billg Subj: Appointment - Defo Scheduled Everardo Harman MD 12/28/2016 Office Visit Diabetes Services Default, Other Billg Dx: Type 2 diabetes - Defo mellitus with Everardo Harman, diabetic MD polyneuropathy, with Sharlene Maria, long-term current use PRISCILA of insulin (Primary Dx) 12/28/2016 Office Visit Diabetes Services Default, Other Billg Subj: Upcoming Appt - Defo Reminder Elda Lopez RD LD Social History Tobacco Use Types Packs/Day Years Used Date Never Smoker Smokeless Tobacco: Never Used Alcohol Use Drinks/Week oz/Week Comments No Last Filed Vital Signs Vital Sign Reading Time Taken Blood Pressure 117/76 12/28/2016 8:50 AM [employer]AFE REGISTRAR Pulse 91 12/28/2016 8:50 AM TAFE REGISTRAR Temperature 36.5 C (97.7 F) 11/05/2013 8:18 AM TAFE REGISTRAR Respiratory Rate 16 06/10/2013 8:26 AM CDT Height 1.71 m (5' 7.32") 12/28/2016 8:50 AM TAFE REGISTRAR Weight 141.1 kg (311 lb 1.1 oz) 12/28/2016 8:50 AM TAFE REGISTRAR Body Mass Index 48.25 12/28/2016 8:50 AM TAFE REGISTRAR Oxygen Saturation 97% 06/10/2013 8:26 AM CDT Plan of Care Patient Goal Type Goal Weight Weight below 91 kg (200 lb) Date Type Specialty Providers Description 05/08/2017 Appointment Diabetes Services Everardo Harman MD [address] [place] [address] [phone] (Fax) Subj: Appointment Sharlene Maria PA-C [address] [place] [address] [phone] (Fax) Rescheduled 05/08/2017 Appointment Diabetes Services Elda Lopez RD Subj: Appointment LD Rescheduled [address] [facility] [address] [place] [address] [phone] (Fax) Health Maintenance Due Date Last Done [...] history exists 08/06/2013, 03/25/2013 Influenza Vaccine: Seasonal 06/18/2017 (Season Ended) Results from Last 3 Months Not on file
[2017-03-21 22:54] VITALS: BP 121/60
== END 2017-03-21 21:55 | disposition home or self-care (01) ==
LOC: ER 19:35
DX: H53.8 Other visual disturbances (principal); E11.9 Type 2 diabetes mellitus without complications; Z79.4 Long term (current) use of insulin; E78.5 Hyperlipidemia, unspecified; I10 Essential (primary) hypertension; Z87.442 Personal history of urinary calculi; Z86.711 Personal history of pulmonary embolism; Z79.01 Long term (current) use of anticoagulants

== ENCOUNTER 2017-07-02 00:22 | Emergency (ER) | payer OTHER ==
--- NOTE | 2017-07-02 01:18 | ERNOTE ---
Medical Problem HPI - General Chief Complaint: General Assessment Time Seen by Provider: 07/02/17 01:07 Source: patient, family Exam Limitations: clinical condition - Immun/Allergies/Home Medications Immunizations: IMMUNIZATION HX Immunizations Up to Date Yes History of Influenza Vaccine No Hx Pneumococcal Vaccination No Allergies/Adverse Reactions: Allergies nitrofurantoin [From Macrobid] Allergy (Severe, Verified 07/02/17 00:39) Hives nitrofurantoin macrocrystalline [From Macrobid] Allergy (Severe, Verified 00:39) Hives, fever Tetanus Vaccines and Toxoid [Tetanus] Allergy (Severe, Verified 07/02/17 00:39) fever fever, swelling amitriptyline Adverse Reaction (Severe, Verified 07/02/17 00:39) Suicidal, hospitalized metformin Adverse Reaction (Severe, Verified 07/02/17 00:39) Rash morphine Adverse Reaction (Severe, Verified 07/02/17 00:39) Vomiting gabapentin Adverse Reaction (Verified 07/02/17 00:39) lisinopril Adverse Reaction (Verified 07/02/17 00:39) Home Medications: HOME MEDICATIONS glipiZIDE [Glucotrol] 10 mg PO BIDAC 04/10/15 [Last Taken 07/16/16 07:00] Atorvastatin Calcium [Lipitor] 10 mg PO DAILY 09/04/15 [Last Taken 07/16/16 07: 00] Insulin NPH Hum/Reg Insulin Hm [Humulin 70-30] 0 unit SC TID 07/09/16 [Last Taken 07/16/16 07:00] Rivaroxaban [Xarelto] 20 mg PO DAILY 10/25/16 [Last Taken Unknown] Furosemide [Lasix] 40 mg PO DAILY 01/03/17 [Last Taken Unknown] Losartan/Hydrochlorothiazide [Losartan-Hctz 100-12.5 mg Tab] 1 each PO DAILY [Last Taken Unknown] Potassium Chloride 10 meq PO DAILY 01/03/17 [Last Taken Unknown] tiZANidine HCL [Tizanidine HCl] 4 mg PO Q8H PRN #30 cap 01/03/17 [Last Taken Unknown] traMADol HCL [Ultram] 50 mg PO QID PRN 01/03/17 [Last Taken Unknown] - History of Present History Narrative: Pt feels bad all over, dizzy, short of breath/ fatigued. left knee has been bothering her for 6 weeks. Has had recent work up for neurologic problems including a brain MRI. Timing: getting worse Severity: mild, moderate Modifying Factors - (Worsens): Present: movement Review of Systems - Review of Systems Constitutional: Present: See HPI. Absent: recent illness EYE: Absent: vision changes ENT: Absent: ear pain, nose congestion Respiratory: Present: shortness of breath. Absent: cough Cardiology: Absent: chest pain Gastrointestinal/Abdominal: Present: nausea, constipation Genitourinary: Absent: frequency, dysuria Musculoskeletal: Present: back pain, muscle pain, muscle stiffness, joint pain - left knee Skin: Absent: rash Neurological: Present: numbness, tingling - hands and feet. Endocrine: Present: excessive sweating, intolerance to cold Hematologic/Lymphatic: Present: no symptoms reported Psych: Present: no symptoms reported - Patient's Past Medical History Patient History - Medical: Anxiety, Chronic Pain, Diabetes Type 2 Insulin Dependent, Depression, Hypothyroidism, Kidney stone, Obesity, Other Patient History - Cardiac/Respiratory: Hypertension, Hyperlipidemia, Pulmonary Embolism Patient History - Cancer: No Hx of Cancer Patient History - Surgical Procedures: Appendectomy, Colonoscopy, , EGD , T & A Patient History - Other: None LMP (Calendar): 06/08/16 - Family History Father Family History - Medical: Family History - Cardiac/Respiratory: CHF, Myocardial Infarction Mother Family History - Medical: Diabetes Type 2 Insulin Dependent Family History - Cardiac/Respiratory: COPD - Social History Living Situations: home Abuse History: No History of abuse Psych History: Hx of Anxiety, Hx of Depression Alcohol Use: none Drug Use: none - Immunizations Immunizations Up to Date: Yes Hx Pneumococcal Vaccination: No History of Influenza Vaccine: No Physical Exam - Physical Exam General Appearance: Present: wd/wn, alert, mild distress, crying - at times Head Exam: Present: normal inspection, no evidence of injury Eye Exam: Normal inspection: bilateral, PERRL: bilateral, EOMI: bilateral Ears, Nose, Throat: Present: normal ENT inspection Neck: Present: normal inspection, nontender Respiratory: Present: no respiratory distress, normal breath sounds, lungs clear Cardiovascular/Chest: Present: regular rate, rhythm, no murmur, normal peripheral pulses Extremity Exam: Present: other Neurological Exam: Present: alert, oriented, normal mood/affect Skin Exam: Present: normal color, warm/dry Lymphatic Exam: Present: no adenopathy ED Progress - Results and Orders Patient's Lab Results:: I have reviewed the patient's lab results. Results and Orders: Laboratory Tests 07/02/17 07/02/17 07/02/17 01:28 01:28 02:15 WBC 7.9 Hgb 15.2 Hct 46.1 Plt Count 264 Sodium 139 Potassium 3.0 L D Chloride 100 Carbon Dioxide 26.7 BUN 17 Creatinine 0.83 Est GFR (Non-Af Amer) 76 Random Glucose 205 H Calcium 8.8 Total Bilirubin 0.6 AST 22 ALT 31 Alkaline Phosphatase 102 Total Protein 7.5 Albumin 3.5 TSH 1.358 Urine Color Dark yellow Urine Appearance Clear Urine pH 5.5 Ur Specific [place] >=1.030 Urine Protein Negative Urine Glucose (UA) Negative Urine Ketones 5 Urine Blood Negative Urine Nitrate Negative Urine Bilirubin Negative Urine Urobilinogen Normal Ur Leukocyte Esterase Negative Urine RBC None seen Urine WBC 0-5 Ur Epithelial Cells 0-5 Urine Bacteria 1+ H Urine Mucus Trace Urine Culture Comments No culture indicated - Vital Signs Patient's Vital Signs:: I have reviewed the patient's vital signs. Vital Signs: Vital Signs 07/02/17 00:27 Temperature 36.8 C Pulse Rate 80 Respiratory 20 Rate Blood Pressure 118/77 O2 Sat by Pulse 98 Oximetry - EKG EKG: NSR EKG read: Interp. by me EKG Comments: Old NV. - X-Ray X-Ray #1 X-Ray: chest Interpretation: Interp. by me X-ray Comments: Nothing acute. Unchanged from 12/23/16 - Progress/Reassessment Chief Complaint: General Assessment Progress:: Improved Progress Note-Subjective: 07/02/17 03:19 discussed hypokalemia and the possibility that it could effect many of the symptoms that she is describing. Discussed more of the workup that she has had lately, including a sleep study and colonoscopy. Discussed how she has noticed that her blood sugars have been much lower since getting her bowel cleaned out for the procedure. I suggested that she take a laxative regularly to keep her bowels moving instead of the intermittent laxatives that she is doing now. Departure - Departure Clinical Impression: Hypokalemia Disposition: Home Follow Up Needed Condition: Good Instructions: Hypokalemia Additional Instructions: Speak to your doctor about testing your potassium again in 5-7 days. Referrals: Jorge Perkins MD [Primary Care Provider] -
--- OUTSIDE RECORDS SUMMARY | 2017-07-02 01:26 | XMS REPORT | Encounter Summary ---
:1960 Author Organization [facility] [place] [address] Care Team Providers Name Role Phone Unavailable Primary Care Provider Unavailable Reason for Visit Reason Comments Shoulder Pain Encounter Details Date Type Department Care Team Description 03/21/2017 Office Visit [facility] Shreya, Primary osteoarthritis [facility] MD Idris of right shoulder [address] [place] [address] (Primary Dx) [address] [facility] [address] [place] [address] [place], [place] [phone] Social History Tobacco Use Types Packs/Day Years Used Date Never Smoker Alcohol Use Drinks/Week oz/Week Comments No Sex Assigned at Date Recorded Not on file as of this encounter Last Filed Vital Signs Vital Sign Reading Time Taken Blood Pressure 120/76 03/21/2017 9:30 AM CDT Pulse 79 03/21/2017 9:30 AM CDT Temperature - - Respiratory Rate 16 03/21/2017 9:30 AM CDT Oxygen Saturation 96% 03/21/2017 9:30 AM CDT Inhaled Oxygen Concentration - - Weight 137.5 kg (303 lb 3.2 oz) 03/21/2017 9:30 AM CDT Height 167.6 cm (5' 6") 03/21/2017 9:30 AM CDT Body Mass Index 48.94 03/21/2017 9:30 AM CDT in this encounter Progress Notes Idris Cash MD - 03/21/2017 9:15 AM CDTFormatting of this note may be different from the original. Subjective: Patient ID: Gabi Crum is a 56 y.o. female. Chief Complaint: HPI Shoulder Pain Patient complaints of right shoulder pain. This is evaluated as a personal injury. The pain is described as burning. The onset of the pain was gradual, starting about 6 years ago. The pain occurs continuously and lasts all day long. Location is posterior, lateral, biceps tendon. No history of dislocation. Symptoms are aggravated by reaching, lifting, pulling, pushing, twisting, ADL's, repetitive use, dressing self, work at or above shoulder height. Symptoms are diminished by nothing. Limited activities include: all activities. marked stiffness is reported. Patient is on disability and she has not missed work. She states that she did have x-rays prior to today's visit. Current Medication: atorvastatin (LIPITOR) 10 MG tablet, 0 furosemide (LASIX) 40 MG tablet, 0 glipiZIDE (GLUCOTROL) 5 MG tablet, 0 glucose blood (FREESTYLE LITE) test strip, 0 glucose monitoring kit (FREESTYLE) monitoring kit, 0 INS SYRINGE/NEEDLE 1CC/28G (B-D INSULIN SYRINGE 1CC/28G) 28G X 1/2" 1 ML MISC, 0 insulin aspart protamine-insulin aspart (NOVOLOG MIX 70/30) (70-30) 100 UNIT/ML injection - vial, 0 insulin NPH-insulin regular (HUMULIN 70/30) (70-30) 100 UNIT/ML injection - vial, 0 Insulin Syringe-Needle U-100 (INSULIN SYRINGE .5CC/30GX5/16") 30G X 5/16" 0.5 ML MISC, 0 Insulin Syringe-Needle U-100 (INSULIN SYRINGE 1CC/30GX5/16") 30G X 5/16" 1 ML MISC, 0 Lancets (UNILET LANCET) MISC, 0 losartan-hydrochlorothiazide (HYZAAR) 100-25 MG per tablet, 0 polyethylene glycol (GLYCOLAX) packet, 0 POTASSIUM PO, 0 rivaroxaban (XARELTO) 20 MG TABS tablet, 0 tizanidine (ZANAFLEX) 2 MG tablet, 0 traMADol (ULTRAM) 50 MG tablet, 0 Unclassified (UNABLE TO FIND), 0 [] triamcinolone acetonide (KENALOG-40) injection, 0 Allergies: Gabapentin; Lisinopril; Macrobid; Metformin; Morphine; Tetanus antitoxin; and Amitriptyline Social History Occupational History Not on file. Social History Main Topics Smoking status: Never Smoker Smokeless tobacco: Not on file Alcohol Use: No Drug Use: No Sexual Activity: Not on file Review of Systems Objective: Right Shoulder Exam Tenderness The patient is experiencing tenderness in the CUFF. Range of Motion Forward Flexion: 90 External Rotation: 70 Internal Rotation 90 degrees: 80 Muscle Strength Abduction: 5/5 Internal Rotation: 5/5 External Rotation: 4/5 Supraspinatus: 4/5 Tests Impingement: Negative Swenson: Negative Cross Arm: Negative Drop Arm: Negative Apprehension: Negative Sulcus: Negative X-rays: Right shoulder: Mild degenerative changes of the glenohumeral joint with irregularity along the greater tuberosity/supraspinatus insertion. A/C joint narrowing and bony hypertrophy Assessment: 1. Primary osteoarthritis of right shoulder Plan: Injection: after PAR, a right shoulder subacromial joint injection was performed. Injection time out called. After positioning, landmarks were palpated. Sterile technique. Topical ethyl-chloride utilized. Test dose of 5mls of 1% lidocaine was injected and followed by combination of Kenalog (40 mg) and 4cc of 1%lidocaine. Injected utilizing posterior portal. Procedure well tolerated. Post-injectioninstructions given including icing techniques, activity restriction and home exercise program. Follow UP: PRN in this encounter Plan of Treatment Not on fileas of this encounter Visit Diagnoses Diagnosis Primary osteoarthritis of right shoulder - Primary Primary localized osteoarthrosis, shoulder region in this encounter Administered Medications Medication Order MAR Action Action Date Dose Rate Site triamcinolone acetonide Given 03/21/2017 10:13 CDT 40 mg Right shoulder (KENALOG-40) injection 40 mg, Intra-articular, ONCE, Yanira 03/21/17 at 1030, For 1 dose, Right shoulder. in this encounter
--- OUTSIDE RECORDS SUMMARY | 2017-07-02 01:26 | XMS REPORT | Clinical Summary ---
:1960 Author Organization [facility] [place] [address] Care Team Providers Name Role Phone Unavailable Primary Care Provider Unavailable Source Comments This disclosure is being made pursuant to the [employer] program and maynot contain all information available regarding this patient.[facility] Allergies Active Allergy Reactions Severity Noted Date Comments Amitriptyline Anxiety Low 03/21/2017 Anger issues. Gabapentin Other (See Comments) 03/20/2017 Pancreatitis Lisinopril Unknown 03/20/2017 Nitrofurantoin Unknown 03/20/2017 Metformin Unknown 03/20/2017 Morphine Other (See Comments) 03/20/2017 sweats Tetanus Antitoxin Unknown 03/20/2017 Current Medications Be aware that medications may not be up to date as of this document. Alwaysverify current medications with the patient. Prescription Sig. Disp. Refills Start Date End Date Status Unclassified (UNABLE TO Durable Medical Active FIND) Equipment, Water therapy 3 times/ week for 6 weeks due to cervical radiculopathy. glipiZIDE (GLUCOTROL) 5 Take 10 mg by mouth Active MG tablet 2 (two) times daily before meals. glucose monitoring kit Check blood sugars Active (FREESTYLE) monitoring as instructed. kit glucose blood (FREESTYLE Check blood sugars 4 Active LITE) test strip times daily. Lancets (UNILET LANCET) Use to test blood Active MISC sugar once daily. losartan-hydrochlorothia Take 1 tablet by Active zide (HYZAAR) 100-25 MG mouth daily. per tablet furosemide (LASIX) 40 MG Take 40 mg by mouth Active tablet daily. POTASSIUM PO Take 10 mg by mouth Active daily. traMADol (ULTRAM) 50 MG Take 50 mg by mouth Active tablet every 6 (six) hours as needed for Pain. insulin NPH-insulin Inject 74 Units in Active regular (HUMULIN 70/30) AM, 44 Units at (70-30) 100 UNIT/ML noon, and 88 Units injection - vial in PM tizanidine (ZANAFLEX) 2 Take 2 mg by mouth Active MG tablet every 8 (eight) hours as needed (Not to exceed 3 doses in 24 hours.). atorvastatin (LIPITOR) Take 10 mg by mouth Active 10 MG tablet daily. rivaroxaban (XARELTO) 20 Take 20 mg by mouth Active MG TABS tablet every morning. cetirizine (ZYRTEC) 10 Take 10 mg by mouth Active MG tablet 2 (two) times daily. Take in the morning and evening. Insulin Syringe-Needle 3 (three) times Active U-100 (BD INSULIN daily. SYRINGE ULTRAFINE) 31G X 5/16" 1 ML MISC Active Problems Problem Noted Date Gastrocnemius strain, left 05/23/2017 Primary osteoarthritis of right shoulder 03/21/2017 Encounters Date Type Specialty Care Team Description 05/23/2017 Office Visit Orthopedic Surgery Shreya Gastrocnemius strain, MD Idris left, initial encounter (Primary Dx) 04/02/2017 Orders Only Orthopedic Surgery Shreya, Right shoulder pain, MD Idris unspecified chronicity from Last 3 Months Family History Medical History Relation Name Comments Heart disease Father [place]-age of 63 Arthritis Mother COPD Mother Heart disease Mother CHF Relation Name Status Comments Father Mother Social History Tobacco Use Types Packs/Day Years Used Date Never Smoker Alcohol Use Drinks/Week oz/Week Comments No Sex Assigned at Date Recorded Not on file Last Filed Vital Signs Vital Sign Reading Time Taken Blood Pressure 114/73 05/23/2017 10:35 AM CDT Pulse 77 05/23/2017 10:35 AM CDT Temperature 37.1 C (98.7 F) 05/23/2017 10:35 AM CDT Respiratory Rate 16 03/21/2017 9:30 AM CDT Oxygen Saturation 95% 05/23/2017 10:35 AM CDT Inhaled Oxygen Concentration - - Weight 140.2 kg (309 lb) 05/23/2017 10:35 AM CDT Height 167.6 cm (5' 6") 05/23/2017 10:35 AM CDT Body Mass Index 49.87 05/23/2017 10:35 AM CDT Plan of Treatment Health Maintenance Due Date Last Done Comments LAB-LIPIDS 1962 LAB-HgA1C 1967 Eye (Ophthalmology) Exam 1972 Foot Exam 1972 LAB-URINE MICROALBUMIN 1972 Hepatitis C Screening 1980 Tetanus/Pertussis (1 - Tdap) 1981 Pap Smear 1983 Colonoscopy 2012 Mammogram 2012 Well Adult Visit 2012 INFLUENZA IMMUNIZATION (#1) 2017 Results Not on filefrom Last 3 Months
--- OUTSIDE RECORDS SUMMARY | 2017-07-02 01:26 | XMS REPORT | Encounter Summary ---
:1960 Author Organization [employer] [place] [address] Care Team Providers Name Role Phone Unavailable Primary Care Provider Unavailable Reason for Visit Reason Comments Knee Pain LEFT Shoulder Pain RIGHT Encounter Details Date Type Department Care Team Description 05/23/2017 Office Visit [facility] Enrique Cash [facility] MD Idris left, initial encounter [address] [facility], [address] [facility] (Primary Dx) [address] [place] [address] [place], [place] [phone] Social History Tobacco Use Types Packs/Day Years Used Date Never Smoker Alcohol Use Drinks/Week oz/Week Comments No Sex Assigned at Date Recorded Not on file as of this encounter Last Filed Vital Signs Vital Sign Reading Time Taken Blood Pressure 114/73 05/23/2017 10:35 AM CDT Pulse 77 05/23/2017 10:35 AM CDT Temperature 37.1 C (98.7 F) 05/23/2017 10:35 AM CDT Respiratory Rate - - Oxygen Saturation 95% 05/23/2017 10:35 AM CDT Inhaled Oxygen Concentration - - Weight 140.2 kg (309 lb) 05/23/2017 10:35 AM CDT Height 167.6 cm (5' 6") 05/23/2017 10:35 AM CDT Body Mass Index 49.87 05/23/2017 10:35 AM CDT in this encounter Progress Notes Idris Cash MD - 05/23/2017 10:29 AM CDTFormatting of this note may be different from the original. Subjective: Patient ID: Gabi Crum is a 56 y.o. female. Chief Complaint: HPI Comments: Ms. Crum presents to the clinic today due to LEFT knee and RIGHT shoulder pain. She reports that she injured her LEFT knee last 05/15/17. She reports that she twisted her knee, heard it crack, and felt it pop. She reports that she has been taking muscle relaxer and tramadol for some relief from pain. She has also triedelevating her knee with a pillow. She reports that the pain can radiate from her LEFT knee into her LEFT foot. She is unable to quantify her pain. She reports that she has experienced pain with activity, pain at rest, pain with stairs, pain with squatting, redness, swelling, difficulty sleeping due to the pain, popping of the knee, and the knee acting as if it wants to give out. She reports that she has tried walking with a cane and has tried to be "really gentle with it." She also reports that she received an injection in her RIGHT shoulder earlier in the year (end of January or beginning of February). She reports that it initially helped, but she has started to experiencepain in it again. She reports that the shoulder pain is affecting her ADLs. She reports that the pain radiates into her upper arm. She also reports that she experiences numbness in her hand. She doeshave a diagnosis of diabetic neuropathy. She reports that the knee and shoulder "are about the same" inregards to the pain. Knee Pain Social History Occupational History Not on file. Social History Main Topics Smoking status: Never Smoker Smokeless tobacco: Not on file Alcohol Use: No Drug Use: No Sexual Activity: Not on file Review of Systems Constitutional: Negative. HENT: Negative. Eyes: Negative. Respiratory: Negative. Cardiovascular: Negative. Gastrointestinal: Negative. Endocrine: Negative. Genitourinary: Negative. Musculoskeletal: LEFT knee and RIGHT shoulder pain Skin: Negative. Allergic/Immunologic: Negative. Neurological: Negative. Hematological: Negative. Psychiatric/Behavioral: Negative. Objective: Left Knee Exam Swelling: Mild Effusion: Yes Tenderness The patient is experiencing tenderness in the med gastrocn. Tests Dani: Anterior - Negative Varus: Negative Valgus: Negative Assessment: 1. Gastrocnemius strain, left, initial encounter Plan: neoprene knee sleeve ice heat in this encounter Plan of Treatment Not on fileas of this encounter Visit Diagnoses Diagnosis Gastrocnemius strain, left, initial encounter - Primary in this encounter
--- OUTSIDE RECORDS SUMMARY | 2017-07-02 01:26 | XMS REPORT | Encounter Summary ---
:1960 Author Organization [employer] [place] [address] Care Team Providers Name Role Phone Unavailable Primary Care Provider Unavailable Reason for Referral Diagnostic Radiology (Routine) Status Reason Specialty Diagnoses / Referred By Referred To Procedures Contact Contact Authorized Diagnoses Right shoulder pain, unspecified chronicity Shreya, Procedures XR SHOULDER MIN 2 VIEWS MD Idris [address] [place] [phone] Encounter Details Date Type Department Care Team Description 04/02/2017 Orders Only [facility] Shreya, Right shoulder pain, [facility] MD Idris unspecified chronicity [address] [place] [address] [place], [place] [phone] Social History Tobacco Use Types Packs/Day Years Used Date Never Smoker Alcohol Use Drinks/Week oz/Week Comments No Sex Assigned at Date Recorded Not on file as of this encounter Plan of Treatment Not on fileas of this encounter Results XR SHOULDER MIN 2 VIEWS (03/21/2017) Specimen Performing Laboratory EXTERNAL NON UPH RAD - NO INTERFACE in this encounter Visit Diagnoses Diagnosis Right shoulder pain, unspecified chronicity in this encounter
--- OUTSIDE RECORDS SUMMARY | 2017-07-02 01:26 | XMS REPORT | Encounter Summary ---
:1960 Author Organization [employer] [place] [place] [address] Care Team Providers Name Role Phone Unavailable Primary Care Provider Unavailable Encounter Details Date Type Department Care Team Description 03/20/2017 Abstract [facility] Sapna Rivas, RN Orthopedics [address] [place] [address], [address] [address] [place] [address] [phone] Social History Tobacco Use Types Packs/Day Years Used Date Never Smoker Alcohol Use Drinks/Week oz/Week Comments No Sex Assigned at Date Recorded Not on file as of this encounter Plan of Treatment Not on fileas of this encounter Visit Diagnoses Not on filein this encounter
--- OUTSIDE RECORDS SUMMARY | 2017-07-02 01:26 | XMS REPORT | Encounter Summary ---
:1960 Author Organization [email or web address] [place] [address] Care Team Providers Name Role Phone Unavailable Primary Care Provider Unavailable Reason for Referral Diagnostic Radiology (Routine) Status Reason Specialty Diagnoses / Referred By Referred To Procedures Contact Contact Authorized Diagnoses Right shoulder pain, unspecified chronicity Shreya, Procedures XR SHOULDER MIN 2 VIEWS MD Idris [address] [phone] Encounter Details Date Type Department Care Team Description 03/20/2017 Orders Only [facility] Sapna Ravi Right shoulder pain, [facility] J, RN unspecified chronicity [address] [facility] [address] [place] [address] (Primary Dx) [address] [phone] [place] [address] Social History Tobacco Use Types Packs/Day Years Used Date Never Smoker Alcohol Use Drinks/Week oz/Week Comments No Sex Assigned at Date Recorded Not on file as of this encounter Plan of Treatment Not on fileas of this encounter Results XR SHOULDER MIN 2 VIEWS (03/21/2017) Specimen Performing Laboratory EXTERNAL NON UP RAD - NO INTERFACE in this encounter Visit Diagnoses Diagnosis Right shoulder pain, unspecified chronicity - Primary in this encounter
[2017-07-02 01:38] LABS: Hematocrit 46.1 % (37.0-47.0); Hemoglobin 15.2 gm/dL (12.5-16.0); Mean Cell Volume 84.9 fl (78-100); Neutrophil # 5.1 K/mm3 (1.3-6.0); Neutrophil % 64.5 % (42-75.0); Platelet Count 264 K/mm3 (150-450); Red Blood Count 5.43 M/mm3 (4.2-5.4); Red Cell Distribution Width 14.4 % (11.5-14.0); White Blood Count 7.9 K/mm3 (4.0-10.5)
[2017-07-02 01:59] LABS: Albumin * 3.5 gm/dl (3.4-5.0); Anion Gap 15.3 mmol/L (6.8-13.8); BUN/Creatinine Ratio 20.5 (9.0-21.6); Bilirubin, Total 0.6 mg/dL (0.0-1.1); Ca. Corrected For Albumin 8.9 mg/dL (8.4-10.2); Calcium * 8.8 mg/dL (7.9-10.9); Carbon Dioxide 26.7 mmol/L (24-32.6); TSH * 1.358 uIU/mL (0.358-3.74); Total Protein 7.5 gm/dL (6.2-8.2)
[2017-07-02 02:21] LABS: Urine Bilirubin Negative (NEGATIVE); Urine Blood Negative /ul (NEGATIVE); Urine Ketone 5 mg/dL (NEGATIVE); Urine Nitrite Negative (NEGATIVE); Urine Protein Negative (NEGATIVE); Urine Specific Gravity >=1.030 SP.GR. (1.005-1.010); Urine Urobilinogen Normal (NORMAL); Urine pH 5.5 pH (5.0-7.0)
[2017-07-02 02:46] LABS: Urine Appearance Clear; Urine Color Dark Yellow; Urine WBC 0-5 /hpf (0-5)
[2017-07-02 02:47] LABS: Urine Bacteria 1+; Urine Mucus TRACE; Urine RBC None Seen /hpf (0-5)
[2017-07-02] MEDS ORDERED: POTASSIUM BICARBONATE/CIT AC 25 MEQ TABLET.EFF PO ONE (02:52)
[2017-07-02] MEDS ORDERED: POTASSIUM BICARBONATE/CIT AC 25 MEQ TABLET.EFF ONE (02:57)
[2017-07-02 03:26] VITALS: BP 145/90
== END 2017-07-02 03:23 | disposition home or self-care (01) ==
LOC: ER 00:22
DX: E87.6 Hypokalemia (principal)

== ENCOUNTER 2017-08-10 23:38 | Emergency (ER) | payer OTHER ==
[2017-08-11 00:30] LABS: Hematocrit 44.6 % (37.0-47.0); Hemoglobin 14.6 gm/dL (12.5-16.0); Mean Cell Volume 85.6 fl (78-100); Mean Corpuscular Hgb Conc 32.7 g/dl (32-36); Mean Platelet Volume 9.6 fl (6.0-9.5); Neutrophil # 5.3 K/mm3 (1.3-6.0); Neutrophil % 65.4 % (42-75.0); Platelet Count 242 K/mm3 (150-450); Red Blood Count 5.21 M/mm3 (4.2-5.4); Red Cell Distribution Width 14.7 % (11.5-14.0); White Blood Count 8.1 K/mm3 (4.0-10.5)
--- NOTE | 2017-08-11 00:41 | ERNOTE ---
Dizziness ER Record Date of Service: 08/11/17 Presenting Symptoms: other - not feeling well Time Seen by Provider: 08/11/17 00:24 Source: patient, family Exam Limitations: no limitations Immunizations: IMMUNIZATION HX Immunizations Up to Date Yes History of Influenza Vaccine No Hx Pneumococcal Vaccination No Allergies/Adverse Reactions: Allergies Allergy/AdvReac Type Severity Reaction Status Date / Time nitrofurantoin Allergy Severe Hives Verified 07/02/17 00:39 [From Macrobid] nitrofurantoin Allergy Severe Hives, Verified 07/02/17 00:39 macrocrystalline fever [From Macrobid] Tetanus Vaccines and Toxoid Allergy Severe fever Verified 07/02/17 00:39 [Tetanus] amitriptyline AdvReac Severe Suicidal, Verified 07/02/17 00:39 hospitalized metformin AdvReac Severe Rash Verified 07/02/17 00:39 morphine AdvReac Severe Vomiting Verified 07/02/17 00:39 gabapentin AdvReac Verified 07/02/17 00:39 lisinopril AdvReac Verified 07/02/17 00:39 Home Medications: HOME MEDICATIONS glipiZIDE [Glucotrol] 10 mg PO BIDAC 04/10/15 [Last Taken 07/16/16 07:00] Atorvastatin Calcium [Lipitor] 10 mg PO DAILY 09/04/15 [Last Taken 07/16/16 07: 00] Insulin NPH Hum/Reg Insulin Hm [Humulin 70-30] 78 unit SC QAM 07/09/16 [Last Taken 07/16/16 07:00] Rivaroxaban [Xarelto] 20 mg PO DAILY 10/25/16 [Last Taken Unknown] Furosemide [Lasix] 40 mg PO DAILY 01/03/17 [Last Taken Unknown] Losartan/Hydrochlorothiazide [Losartan-Hctz 100-12.5 mg Tab] 1 each PO DAILY [Last Taken Unknown] Potassium Chloride 10 meq PO BID 01/03/17 [Last Taken Unknown] traMADol HCL [Ultram] 50 mg PO QID PRN 01/03/17 [Last Taken Unknown] Cetirizine HCl 10 mg PO BID 08/11/17 [Last Taken Unknown] Insulin NPH Hum/Reg Insulin Hm [Humulin 70-30] 48 unit SC DAILY 08/11/17 [Last Taken Unknown] Insulin NPH Hum/Reg Insulin Hm [Humulin 70-30] 90 unit SC QPM 08/11/17 [Last Taken Unknown] Ondansetron HCl [Zofran] 4 mg PO TID PRN #10 tablet 08/11/17 [Last Taken Unknown ] tiZANidine HCL [Tizanidine HCl] 2 mg PO Q8H PRN 08/11/17 [Last Taken Unknown] - History of Present Illness Narrative: 57 year old that has not been feeling well since yesterday and complains of mild lower abdominal discomfort. Has not eaten or drank much all day due to a queasy feeling, but denies any fever,vomiting/diarrhea. The sensation in the abdomen is crampy. No complaints of headache, chest/abdominal pain, or shortness of breath. There have been chills, but this is not an unusual event. Denies vertiginous symptoms. Date (Duration): 08/11/17 Time (Timing): 02:30 Timing and Duration: gradual onset Worse/persistent since:: yesterday Noted on awakening:: No Severity: max: mild Severity: currently: moderate Associated Symptoms: Present: weakness - mild- general. Absent: headache Sense of movement: Present: none Modifying Factors - (Improves): Reports: nothing Modifying Factors - (Worsens): Reports: nothing Review of Systems - Review of Systems Constitutional: Present: no symptoms reported EYE: Present: no symptoms reported ENT: Present: no symptoms reported Respiratory: Present: no symptoms reported Cardiology: Present: no symptoms reported Gastrointestinal/Abdominal: Present: no symptoms reported Genitourinary: Present: no symptoms reported Musculoskeletal: Present: no symptoms reported Neurological: Present: no symptoms reported Endocrine: Present: no symptoms reported Hematologic/Lymphatic: Present: no symptoms reported Psych: Present: no symptoms reported - Patient's Past Medical History Patient History - Medical: Anxiety, Chronic Pain, Diabetes Type 2 Insulin Dependent, Depression, Hypothyroidism, Kidney stone, Obesity, Other Patient History - Cardiac/Respiratory: Hypertension, Hyperlipidemia, Pulmonary Embolism Patient History - Cancer: No Hx of Cancer Patient History - Surgical Procedures: Appendectomy, Colonoscopy, , EGD , T & A Patient History - Other: None LMP (Calendar): 06/08/16 - Family History Father Family History - Medical: Family History - Cardiac/Respiratory: CHF, Myocardial Infarction Mother Family History - Medical: Diabetes Type 2 Insulin Dependent Family History - Cardiac/Respiratory: COPD - Social History Living Situations: home Abuse History: No History of abuse Psych History: Hx of Anxiety, Hx of Depression Smoking Status: Never smoker Alcohol Use: none Drug Use: none - Immunizations Immunizations Up to Date: Yes Hx Pneumococcal Vaccination: No History of Influenza Vaccine: No Physical Exam - Physical Exam Narrative: morbidly obese General Appearance: Present: no apparent distress Head Exam: Present: normal inspection Eye Exam: Normal inspection: bilateral Ears, Nose, Throat: Present: normal ENT inspection Neck: Present: normal inspection Respiratory: Present: no respiratory distress Cardiovascular/Chest: Present: regular rate, rhythm, no murmur Gastrointestinal/Abdominal: Present: nontender Back Exam: Present: normal inspection Extremity Exam: Present: normal inspection Neurological Exam: Present: alert, oriented, normal mood/affect, bowling ball patcher II-XII nml as tested Skin Exam: Present: pallor - mild ED Progress - Results and Orders Patient's Lab Results:: I have reviewed the patient's lab results. - Vital Signs Patient's Vital Signs:: I have reviewed the patient's vital signs. Vital Signs: Vital Signs 08/11/17 08/11/17 00:13 00:21 Pulse Rate 74 78 Respiratory 17 Rate Blood Pressure 138/81 O2 Sat by Pulse 95 Oximetry - EKG EKG: NSR EKG read: Interp. by me EKG Comments: rate 77, normal axis - Progress/Reassessment Chief Complaint: Dizziness Progress:: Improved Progress Note-Subjective: 08/11/17 02:16 Given Reglan 10 mg, diphenhydramine 25 mg IV and NS 500 cc. Subsequently has started to feel better and is taking oral fluids. 08/11/17 02:25 given Bentyl 25 mg IM Departure Clinical Impression: Viral syndrome - Departure Disposition: Home self-care Condition: Good Instructions: Rehydration, Adult Print Language: Portuguese Referrals: Jorge Perkins MD [Primary Care Provider] - Prescriptions: Ondansetron HCl [Zofran] 4 mg PO TID PRN #10 tablet PRN Reason: Nausea
[2017-08-11] MEDS ORDERED: diphenhydrAMINE HCL 50 MG/ML VIAL IV ONE (00:42)
[2017-08-11] MEDS ORDERED: METOCLOPRAMIDE HCL 5 MG/ML VIAL IV ONE (00:42)
[2017-08-11] MEDS ORDERED: NORMAL SALINE 1,000 ML IV PRN (00:43)
[2017-08-11 00:46] LABS: ALT 33 U/L (19-67); AST 24 U/L (0-48); Albumin * 3.3 gm/dl (3.4-5.0); Alkaline Phosphatase * 95 U/L (50-170); Anion Gap 13.2 mmol/L (6.8-13.8); BUN/Creatinine Ratio 27.1 (9.0-21.6); Bilirubin, Total 0.5 mg/dL (0.0-1.1); Blood Urea Nitrogen 19 mg/dL (3-23); Calcium * 8.8 mg/dL (7.9-10.9); Chloride 104 mmol/L (97-106); Glucose * 150 mg/dL (70-110); Potassium 3.2 mmol/L (3.4-4.6); Sodium 141 mmol/L (132-142); Total Protein 6.9 gm/dL (6.2-8.2)
[2017-08-11 00:47] LABS: Troponin I Less than 0.017 ng/ml (0.00-0.10)
[2017-08-11] MEDS ORDERED: POTASSIUM CHLORIDE 20 MEQ TABLET.SA PO ONE (00:53)
[2017-08-11 01:05] LABS: Urine Bilirubin Negative (NEGATIVE); Urine Blood Negative /ul (NEGATIVE); Urine Ketone Negative (NEGATIVE); Urine Nitrite Negative (NEGATIVE); Urine Protein Negative (NEGATIVE); Urine Specific Gravity >=1.030 SP.GR. (1.005-1.010); Urine Urobilinogen Normal (NORMAL); Urine pH 5.5 pH (5.0-7.0)
[2017-08-11] MEDS ORDERED: diphenhydrAMINE HCL 50 MG/ML VIAL ONE (01:12)
[2017-08-11] MEDS ORDERED: METOCLOPRAMIDE HCL 5 MG/ML VIAL ONE (01:12)
[2017-08-11] MEDS ORDERED: POTASSIUM CHLORIDE 20 MEQ TABLET.SA ONE (01:12)
[2017-08-11 01:18] LABS: Urine Amorphous Sediment TRACE (NONE-FEW); Urine Appearance Clear; Urine Bacteria TRACE; Urine Color Yellow; Urine Mucus TRACE; Urine RBC 0-5 /hpf (0-5); Urine WBC None Seen /hpf (0-5)
[2017-08-11 01:58] VITALS: BP 124/65
[2017-08-11] MEDS ORDERED: DICYCLOMINE HCL 10 MG/ML AMPUL IM ONE ×2 (02:19→02:21)
== END 2017-08-11 02:40 | disposition home or self-care (01) ==
LOC: ER 23:38
DX: B34.9 Viral infection, unspecified (principal); G89.29 Other chronic pain; E11.9 Type 2 diabetes mellitus without complications; Z79.4 Long term (current) use of insulin; E03.9 Hypothyroidism, unspecified; I10 Essential (primary) hypertension; E78.5 Hyperlipidemia, unspecified; Z86.711 Personal history of pulmonary embolism; Z79.01 Long term (current) use of anticoagulants; F41.8 Other specified anxiety disorders

== ENCOUNTER 2017-09-13 18:38 | Emergency (ER) | payer OTHER ==
[2017-09-13] MEDS ORDERED: SUCRALFATE 1 G/10 ML UDC PO ONE (18:57)
[2017-09-13] MEDS ORDERED: LIDOCAINE HCL 20 ML UDC PO ONE (18:57)
[2017-09-13] MEDS ORDERED: MAG HYDROX/ALUMINUM HYD/SIMETH 30 ML UDC PO ONE (18:57)
[2017-09-13 19:18] LABS: Hematocrit 45.2 % (37.0-47.0); Hemoglobin 14.8 gm/dL (12.5-16.0); Mean Cell Volume 85.9 fl (78-100); Mean Corpuscular Hemoglobin 28.1 pg (27-31); Mean Corpuscular Hgb Conc 32.7 g/dl (32-36); Mean Platelet Volume 9.3 fl (6.0-9.5); Neutrophil # 5.7 K/mm3 (1.3-6.0); Neutrophil % 63.3 % (42-75.0); Platelet Count 242 K/mm3 (150-450); Red Blood Count 5.26 M/mm3 (4.2-5.4); Red Cell Distribution Width 14.7 % (11.5-14.0)
--- NOTE | 2017-09-13 19:31 | ERNOTE ---
Dyspnea - Date Date of Service: 09/13/17 - General Presenting Symptoms: shortness of breath Time Seen by Provider: 09/13/17 18:47 Source: patient Exam Limitations: no limitations - Immun/Allergies/Home Medications Immunizations: IMMUNIZATION HX Immunizations Up to Date Yes History of Influenza Vaccine No Hx Pneumococcal Vaccination No Allergies/Adverse Reactions: Allergies nitrofurantoin [From Macrobid] Allergy (Severe, Verified 09/13/17 18:42) Hives nitrofurantoin macrocrystalline [From Macrobid] Allergy (Severe, Verified 18:42) Hives, fever Tetanus Vaccines and Toxoid [Tetanus] Allergy (Severe, Verified 09/13/17 18:42) fever fever, swelling amitriptyline Adverse Reaction (Severe, Verified 09/13/17 18:42) Suicidal, hospitalized metformin Adverse Reaction (Severe, Verified 09/13/17 18:42) Rash morphine Adverse Reaction (Severe, Verified 09/13/17 18:42) Vomiting gabapentin Adverse Reaction (Verified 09/13/17 18:42) lisinopril Adverse Reaction (Verified 09/13/17 18:42) Home Medications: HOME MEDICATIONS glipiZIDE [Glucotrol] 10 mg PO BIDAC 04/10/15 [Last Taken 07/16/16 07:00] Atorvastatin Calcium [Lipitor] 10 mg PO DAILY 09/04/15 [Last Taken 07/16/16 07: 00] Insulin NPH Hum/Reg Insulin Hm [Humulin 70-30] 78 unit SC QAM 07/09/16 [Last Taken 07/16/16 07:00] Rivaroxaban [Xarelto] 20 mg PO DAILY 10/25/16 [Last Taken Unknown] Furosemide [Lasix] 40 mg PO DAILY 01/03/17 [Last Taken Unknown] Losartan/Hydrochlorothiazide [Losartan-Hctz 100-12.5 mg Tab] 1 each PO DAILY [Last Taken Unknown] Potassium Chloride 10 meq PO BID 01/03/17 [Last Taken Unknown] traMADol HCL [Ultram] 50 mg PO QID PRN 01/03/17 [Last Taken Unknown] Cetirizine HCl 10 mg PO BID 08/11/17 [Last Taken Unknown] Insulin NPH Hum/Reg Insulin Hm [Humulin 70-30] 48 unit SC DAILY 08/11/17 [Last Taken Unknown] Insulin NPH Hum/Reg Insulin Hm [Humulin 70-30] 90 unit SC QPM 08/11/17 [Last Taken Unknown] Ondansetron HCl [Zofran] 4 mg PO TID PRN #10 tablet 08/11/17 [Last Taken Unknown ] tiZANidine HCL [Tizanidine HCl] 2 mg PO Q8H PRN 08/11/17 [Last Taken Unknown] Albuterol Sulfate [Ventolin Hfa] 2 puff IH Q4H PRN #1 inhaler 09/13/17 [Last Taken Unknown] - History of Present Illness Narrative: Pt. comes in with c/o burning in her chest and throat since after PT this afternoon and SOB. Pt. denies any recent illness, fever, NVD, rhinorrhea, sinus congestion, but states that she recently was at the ER in [place] for having a low O2 sat overnight. Pt. denies any alleviaitng factors, aggravating factors, or prehospital treatment. Review of Systems - Review of Systems Constitutional: Present: no symptoms reported. Absent: recent illness, fever, chills, weakness, fatigue, malaise EYE: Present: no symptoms reported ENT: Present: sore throat. Absent: nose congestion, nasal drainage Respiratory: Present: shortness of breath, cough. Absent: orthopnea, wheezing Cardiology: Present: chest pain. Absent: palpitations, edema Gastrointestinal/Abdominal: Present: no symptoms reported. Absent: nausea, vomiting, diarrhea Genitourinary: Present: no symptoms reported Musculoskeletal: Present: no symptoms reported. Absent: back pain, joint pain Skin: Present: no symptoms reported. Absent: rash, change in hair/nails Neurological: Present: no symptoms reported. Absent: headache, dizziness/light- headedness, numbness, tingling All Other Systems: All systems neg except as marked - Patient's Past Medical History Patient History - Medical: Anxiety, Chronic Pain, Diabetes Type 2 Insulin Dependent, Depression, Hypothyroidism, Kidney stone, Obesity Patient History - Cardiac/Respiratory: Hypertension, Hyperlipidemia, Pulmonary Embolism Patient History - Cancer: No Hx of Cancer Patient History - Surgical Procedures: Appendectomy, Colonoscopy, , EGD , T & A Patient History - Other: None - Family History Father Family History - Medical: Family History - Cardiac/Respiratory: CHF, Myocardial Infarction Mother Family History - Medical: Diabetes Type 2 Insulin Dependent Family History - Cardiac/Respiratory: COPD - Social History Living Situations: home Abuse History: No History of abuse Psych History: Hx of Anxiety, Hx of Depression Smoking Status: Never smoker - Immunizations Immunizations Up to Date: Yes Hx Pneumococcal Vaccination: No History of Influenza Vaccine: No Physical Exam - Physical Exam General Appearance: Present: wd/wn, alert, no apparent distress Head Exam: Present: normal inspection, no evidence of injury Eye Exam: Normal inspection: bilateral, PERRL: bilateral, EOMI: bilateral Ears, Nose, Throat: Present: normal ENT inspection, normal pharynx. Absent: nasal congestion, sinus pain/drainage, pharyngeal erythema, pharyngeal swelling Neck: Present: normal inspection, nontender. Absent: lymphadenopathy (R), lymphadenopathy (L) Respiratory: Present: no respiratory distress, normal breath sounds, no accessory muscle use, chest nontender, lungs clear. Absent: crackles, rales, rhonchi, wheezing Cardiovascular/Chest: Present: regular rate, rhythm, no murmur, normal peripheral pulses Gastrointestinal/Abdominal: Present: normal bowel sounds, nontender, nondistended, soft, no organomegaly, other - obese Back Exam: Present: normal inspection Extremity Exam: Present: normal inspection, non-tender, normal range of motion, no edema Neurological Exam: Present: alert, oriented, normal mood/affect, no motor/ sensory deficits, behavioral medical director II-XII nml as tested, normal cerebellar test Skin Exam: Present: normal color, warm/dry. Absent: pallor, skin rash ED Progress - Results and Orders Patient's Lab Results:: I have reviewed the patient's lab results. - Vital Signs Patient's Vital Signs:: I have reviewed the patient's vital signs. Vital Signs: Vital Signs 09/13/17 09/13/17 18:43 19:14 Temperature 37.6 C H Pulse Rate 86 84 Respiratory 20 Rate Blood Pressure 127/76 O2 Sat by Pulse 96 Oximetry - EKG EKG: NSR EKG read: Reviewed by me EKG Comments: interp by Dr Marie - X-Ray X-Ray #1 X-Ray: chest Interpretation: Reviewed by me X-ray Comments: bronchial cuffing borderline cardiomegaly. - Progress/Reassessment Chief Complaint: Dyspnea Departure Clinical Impression: Bronchitis - Departure Disposition: Home self-care Condition: Good Instructions: Acute Bronchitis, [id number] Additional Instructions: Please follow up with your primary provider in 2-3 days. Referrals: Jorge Perkins MD [Primary Care Provider] - Prescriptions: Albuterol Sulfate [Ventolin Hfa] 2 puff IH Q4H PRN #1 inhaler PRN Reason: Shortness Of Breath
[2017-09-13 19:37] LABS: ALT 42 U/L (19-67); AST 28 U/L (0-48); Albumin * 3.5 gm/dl (3.4-5.0); Alkaline Phosphatase * 89 U/L (50-170); Anion Gap 12.5 mmol/L (6.8-13.8); BUN/Creatinine Ratio 26.5 (9.0-21.6); Bilirubin, Total 0.7 mg/dL (0.0-1.1); Blood Urea Nitrogen 18 mg/dL (3-23); Ca. Corrected For Albumin 8.8 mg/dL (8.4-10.2); Calcium * 8.7 mg/dL (7.9-10.9); Carbon Dioxide 26.2 mmol/L (24-32.6); Chloride 103 mmol/L (97-106); Glucose * 204 mg/dL (70-110); Potassium 3.7 mmol/L (3.4-4.6); Sodium 138 mmol/L (132-142); Total Protein 7.3 gm/dL (6.2-8.2); Troponin I Less than 0.017 ng/ml (0.00-0.10)
[2017-09-13 20:03] LABS: Prothrombin Time (Patient) 10.1 Seconds (9.0-11.0)
[2017-09-13 20:12] LABS: INR 1.01 INR (0.90-1.10)
[2017-09-13] MEDS ORDERED: ALBUTEROL SULFATE 60 PUFF INHALER IH ONE (20:25)
[2017-09-13] MEDS ORDERED: ALBUTEROL SULFATE 200 PUFF INHALER IH ONE (20:28)
[2017-09-13 20:38] VITALS: BP 124/72
== END 2017-09-13 20:46 | disposition home or self-care (01) ==
LOC: ER 18:38
DX: J40 Bronchitis, not specified as acute or chronic (principal); G89.29 Other chronic pain; E11.9 Type 2 diabetes mellitus without complications; Z79.4 Long term (current) use of insulin; E03.9 Hypothyroidism, unspecified; I10 Essential (primary) hypertension; E78.5 Hyperlipidemia, unspecified; F41.8 Other specified anxiety disorders

== ENCOUNTER 2019-06-02 18:02 | Observation (INO) ==
[2019-06-02] MEDS ORDERED: ONDANSETRON HCL/PF 2 MG/ML VIAL IV ONE (18:35)
[2019-06-02] MEDS ORDERED: NORMAL SALINE 1,000 ML IV ONE (18:35)
--- NOTE | 2019-06-02 18:45 | ERNOTE ---
<Michel Johansen - Last Filed: 06/02/19 19:38> Medical Problem HPI - Narrative Date of Service: 06/02/19 - General Chief Complaint: General Assessment Time Seen by Provider: 06/02/19 18:23 Source: patient, family Exam Limitations: no limitations - Immun/Allergies/Home Medications Immunizations: IMMUNIZATION HX Immunizations Up to Date Yes History of Influenza Vaccine Yes Hx Pneumococcal Vaccination Yes Allergies/Adverse Reactions: Allergies nitrofurantoin [From Macrobid] Allergy (Severe, Verified 06/02/19 18:08) Hives nitrofurantoin macrocrystalline [From Macrobid] Allergy (Severe, Verified 06/02/19 18:08) Hives, fever Tetanus Vaccines and Toxoid [Tetanus] Allergy (Severe, Verified 06/02/19 18:08) fever fever, swelling amitriptyline Adverse Reaction (Severe, Verified 06/02/19 18:08) Suicidal, hospitalized metformin Adverse Reaction (Severe, Verified 06/02/19 18:08) Rash morphine Adverse Reaction (Severe, Verified 06/02/19 18:08) Vomiting gabapentin Adverse Reaction (Verified 06/02/19 18:08) lisinopril Adverse Reaction (Verified 06/02/19 18:08) Home Medications: HOME MEDICATIONS ascorbic acid (vitamin C) 1,000 mg tablet 1 g PO BID tab 06/17/18 [Last Taken Unknown] cyanocobalamin (vit B-12) 1,000 mcg tablet 1,000 mcg PO DAILY 06/17/18 [Last Taken Unknown] magnesium 250 mg tablet 1 tab PO BID tab 06/17/18 [Last Taken Unknown] warfarin 1 mg tablet 2 mg PO DAILY #60 tab 08/12/18 [Last Taken Unknown] insulin lispro (U-100) 100 unit/mL subcutaneous solution 100 unit SUBCUT AC #150 ml 10/16/18 [Last Taken Unknown] blood-glucose meter,continuous-transmitter See Dose Instructions .ROUTE .MEDSUPPLY #1 ea 10/22/18 [Last Taken Unknown] atorvastatin 10 mg tablet 10 mg PO QHS 90 Days #90 tab 11/03/18 [Last Taken Unknown] glipizide 10 mg tablet 20 mg PO BIDAC #360 tab 11/03/18 [Last Taken Unknown] potassium chloride ER 10 mEq tablet,extended release(part/cryst) 10 meq PO TID #270 tab 11/03/18 [Last Taken Unknown] warfarin 1 mg tablet 1 mg PO DAILY #90 tab 11/03/18 [Last Taken Unknown] warfarin 5 mg tablet 5 mg PO DAILY #30 tab 11/03/18 [Last Taken Unknown] tramadol 50 mg tablet 50 mg PO BID #60 tab 11/04/18 [Last Taken Unknown] pantoprazole 40 mg tablet,delayed release 40 mg PO DAILY #90 tab 11/19/18 [Last Taken Unknown] cholecalciferol (vitamin D3) 5,000 unit tablet 5,000 unit PO DAILY #90 tab 12/12/18 [Last Taken Unknown] furosemide 40 mg tablet 80 mg PO DAILY 90 Days #180 tab 12/12/18 [Last Taken Unknown] insulin syringe U-100 with needle 1 mL 31 gauge x 5/16" See Dose Instructions .ROUTE .MEDSUPPLY #300 ea 12/12/18 [Last Taken Unknown] tizanidine 4 mg tablet 4 mg PO TID PRN #90 tab 12/12/18 [Last Taken Unknown] blood sugar diagnostic strips See Dose Instructions .ROUTE .MEDSUPPLY #400 ea 12/15/18 [Last Taken Unknown] insulin human U-100 NPH-regulr 70-30 mix 100 unit/mL subcutaneous susp 100 unit SUBCUT TID #150 ml 01/09/19 [Last Taken Unknown] Dulaglutide [Trulicity] 1.5 mg SQ Q7D 04/10/19 [Last Taken Unknown] Insulin Glargine,Hum.rec.anlog [Lantus] 60 units SC HS 04/10/19 [Last Taken Unknown] Insulin Lispro [Humalog] 20 unit SQ TID 04/10/19 [Last Taken Unknown] Losartan/Hydrochlorothiazide [Losartan-Hctz 100-25 mg Tab] 1 ea PO DAILY 04/10/19 [Last Taken Unknown] - History of Present History Narrative: patient presents to ed with multiple c/o , fever chills cough , leg pain, diarrhea, past hx of dvt and pe, has had lowerd pt values Timing: constant, getting worse Severity: moderate Modifying Factors - (Improves): Present: other - nothing Modifying Factors - (Worsens): Present: other - nothing Review of Systems - Review of Systems Constitutional: Present: See HPI, fever, chills, weakness, fatigue, malaise EYE: Present: no symptoms reported ENT: Present: nose pain, nose congestion, nasal drainage Respiratory: Present: See HPI, shortness of breath, cough, orthopnea Cardiology: Present: no symptoms reported Gastrointestinal/Abdominal: Present: See HPI, nausea, diarrhea, eating less, drinking less Genitourinary: Present: no symptoms reported Musculoskeletal: Present: muscle pain, muscle stiffness, joint pain Skin: Present: no symptoms reported Neurological: Present: headache, dizziness/light-headedness, weakness Endocrine: Present: no symptoms reported Hematologic/Lymphatic: Present: no symptoms reported Psych: Present: no symptoms reported All Other Systems: All systems neg except as marked Medical History (Updated 04/10/19 @ 11:52 by Ramses Marie MD) Anxiety (Chronic) Depression (Chronic) Hyperlipemia (Chronic) Back pain (Chronic) Diabetes mellitus (Chronic) Pulmonary emboli (Chronic) Hypertension (Chronic) Peripheral neuropathy (Chronic) DVT (deep venous thrombosis) (Chronic) UTI (urinary tract infection) (Resolved) Type II diabetes mellitus (Chronic) Anticoagulant long-term use (Chronic) Abdominal pain (Resolved) Myalgia (Resolved) Fatigue (Chronic) Arthritis Chronic pain Clotting disorder Diabetes type 2, controlled Disc degeneration, lumbar Disc disease, degenerative, cervical Esophageal stricture Hyperlipidemia Kidney stones Menometrorrhagia Morbid obesity Neuropathy Ovarian cyst Onset Date: ~2002 L-8.5cm ovarian cyst Pulmonary embolism Sleep apnea Umbilical hernia distress, antepartum Premature Labor Premature deliver Surgical History: Surgical History (Updated 08/16/18 @ 15:22 by Favian Flores MD) H/O section x2 H/O ovarian cystectomy 8 cm L H/O tubal ligation right History of appendectomy History of carpal tunnel release bilateral History of esophagogastroduodenoscopy (EGD) x5 History of left oophorectomy removed due to 8cm cyst History of tonsillectomy Family History: Family History (Updated 06/14/18 @ 07:41 by Marisel Nguyen) Daughter No problems noted. Daughter No problems noted. Son , congenital @ 5 days old No problems noted. Son No problems noted. Father Heart disease Emphysema, unspecified Mother Emphysema, unspecified CHF (congestive heart failure) Diabetes type 2 Grandmother , Maternal Hypoglycemia Grandfather , Maternal CVA (cerebral vascular accident) tooth infection went septic Son No problems noted. Sister Cancer Lung Grandfather , Paternal No problems noted. Grandmother , paternal No problems noted. Social History: Preferred Language Comoran Do you have any samaritan or No cultural preference? Smoking Status Never smoker Abuse History No History of abuse Psych History Hx of Anxiety,Hx of Depression Alcohol Use none Drug Use none (Last Updated 01/06/19 @ 13:04 by CORINE Doherty) No Social History Section defined Physical Exam - Physical Exam General Appearance: Present: moderate distress, anxious Head Exam: Present: normal inspection, no evidence of injury Eye Exam: Normal inspection: bilateral, PERRL: bilateral, EOMI: bilateral Ears, Nose, Throat: Present: nasal congestion, sinus pain/drainage, pharyngeal erythema Neck: Present: normal inspection, nontender Respiratory: Present: no respiratory distress, rales, rhonchi, wheezing Cardiovascular/Chest: Present: tachycardia Gastrointestinal/Abdominal: Present: normal bowel sounds, soft, no organomegaly, tenderness Back Exam: Present: normal inspection, normal range of motion, no CVA tenderness, no vertebral tenderness Extremity Exam: Present: normal except - - pain and tenderness in lower right leg Neurological Exam: Present: alert, oriented, normal mood/affect, no motor/sensory deficits Skin Exam: Present: normal color, warm/dry Lymphatic Exam: Present: no adenopathy Progress - Date and Time Seen: Date and Time: 06/02/19 19:38 condition unchanged - Vital Signs Vital Signs: Vital Signs 06/02/19 18:04 Temperature 39.1 C H Pulse Rate 89 Respiratory Rate 22 H Blood Pressure 131/72 O2 Sat by Pulse Oximetry 97 - Progress/Reassessment Chief Complaint: General Assessment Progress:: Unchanged - Transfer of Care Physician Sign Out: Michel Johansen Receiving Physician: Zacarias Malin Expected Disposition: Admit Plan - Plan Plan: to admit Departure Clinical Impression: Pneumonia Qualifiers: Pneumonia type: due to unspecified organism Laterality: left Lung location: lower lobe of lung Qualified Code(s): J18.1 - Lobar pneumonia, unspecified organism Diabetes mellitus Qualifiers: Diabetes mellitus type: type 2 Diabetes mellitus termite exterminator helper insulin use: with termite exterminator helper use Diabetes mellitus complication status: with neurologic complications Diabetes mellitus complication detail: with polyneuropathy Qualified Code(s): E11.42 - Type 2 diabetes mellitus with diabetic polyneuropathy; Z79.4 - terminal manager (current) use of insulin - Departure Disposition: Short Term Hospital Inpatient Condition: Stable Referrals: Trinity Rothman DO [Primary Care Provider] - <Zacarias Malin - Last Filed: 06/02/19 22:07> Medical Problem HPI - Immun/Allergies/Home Medications Immunizations: IMMUNIZATION HX Immunizations Up to Date Yes History of Influenza Vaccine Yes Hx Pneumococcal Vaccination Yes Medical History (Updated 06/02/19 @ 21:02 by Zacarias Malin DO) Anxiety (Chronic) Depression (Chronic) Hyperlipemia (Chronic) Back pain (Chronic) Diabetes mellitus (Chronic) Pulmonary emboli (Chronic) Hypertension (Chronic) Peripheral neuropathy (Chronic) DVT (deep venous thrombosis) (Chronic) UTI (urinary tract infection) (Resolved) Type II diabetes mellitus (Chronic) Anticoagulant long-term use (Chronic) Abdominal pain (Resolved) Myalgia (Resolved) Fatigue (Chronic) Arthritis Chronic pain Clotting disorder Diabetes type 2, controlled Disc degeneration, lumbar Disc disease, degenerative, cervical Esophageal stricture Hyperlipidemia Kidney stones Menometrorrhagia Morbid obesity Neuropathy Ovarian cyst Onset Date: ~2002 L-8.5cm ovarian cyst Pulmonary embolism Sleep apnea Umbilical hernia distress, antepartum Premature Labor Premature deliver Surgical History: Surgical History (Updated 08/16/18 @ 15:22 by Favian Flores MD) H/O section x2 H/O ovarian cystectomy 8 cm L H/O tubal ligation right History of appendectomy History of carpal tunnel release bilateral History of esophagogastroduodenoscopy (EGD) x5 History of left oophorectomy removed due to 8cm cyst History of tonsillectomy Family History: Family History (Updated 06/14/18 @ 07:41 by Marisel Nguyen) Daughter No problems noted. Daughter No problems noted. Son , congenital @ 5 days old No problems noted. Son No problems noted. Father Heart disease Emphysema, unspecified Mother Emphysema, unspecified CHF (congestive heart failure) Diabetes type 2 Grandmother , Maternal Hypoglycemia Grandfather , Maternal CVA (cerebral vascular accident) tooth infection went septic Son No problems noted. Sister Cancer Lung Grandfather , Paternal No problems noted. Grandmother , paternal No problems noted. Social History: Preferred Language Com[place]an Do you have any samaritan or No cultural preference? Smoking Status Never smoker Abuse History No History of abuse Psych History Hx of Anxiety,Hx of Depression Alcohol Use none Drug Use none (Last Updated 01/06/19 @ 13:04 by CORINE Doherty) No Social History Section defined Physical Exam - Physical Exam General Appearance: Present: moderate distress, anxious Progress - Results and Orders Patient's Lab Results:: I have reviewed the patient's lab results. Results and Orders: Laboratory Tests 06/02/19 06/02/19 06/02/19 19:45 19:45 19:45 WBC 12.3 H Hgb 14.6 Hct 46.7 Plt Count 218 Neutrophils % 87.7 H PT 26.1 H INR (Anticoag Therapy) 2.74 H PTT (Ana M) 33.0 H D-Dimer Sodium 144 H Potassium 4.2 Chloride 106 BUN 15 Creatinine 0.83 Random Glucose 113 H Calcium 9.3 Total Bilirubin 0.6 AST 25 ALT 27 Troponin I Less than 0.017 B-Natriuretic Peptide 37 06/02/19 19:45 WBC Hgb Hct Plt Count Neutrophils % PT INR (Anticoag Therapy) PTT (Ana M) D-Dimer 0.22 D Sodium Potassium Chloride BUN Creatinine Random Glucose Calcium Total Bilirubin AST ALT Troponin I B-Natriuretic Peptide - Vital Signs Patient's Vital Signs:: I have reviewed the patient's vital signs. Vital Signs: Vital Signs 06/02/19 18:04 Temperature 39.1 C H Pulse Rate 89 Respiratory Rate 22 H Blood Pressure 131/72 O2 Sat by Pulse Oximetry 97 - X-Ray X-Ray #1 X-Ray: chest Interpretation: Interp. by me X-ray Comments: Left lower lobe infiltrate. X-Ray #2 X-Ray: abdomen Interpretation: Interp. by me X-ray Comments: No free air, no air-fluid levels, no dilated loops or evidence of obstruction - Progress/Reassessment Progress Note-Subjective: 06/02/19 22:[address] Morris he agrees to admit the patient for pneumonia.
[2019-06-02 19:51] LABS: Hematocrit 46.7 % (37.0-47.0); Hemoglobin 14.6 gm/dL (12.5-16.0); Mean Cell Volume 88.1 fl (78-100); Mean Corpuscular Hemoglobin 27.5 pg (27-31); Mean Corpuscular Hgb Conc 31.3 g/dl (32-36); Mean Platelet Volume 9.9 fl (8-12.5); Neutrophil # 10.7 K/mm3 (1.3-6.0); Neutrophil % 87.7 % (42-75.0); Platelet Count 218 K/mm3 (150-450); Red Cell Distribution Width 15.6 % (11.5-14.0); White Blood Count 12.3 K/mm3 (4.0-10.5)
[2019-06-02 20:05] LABS: Prothrombin Time (Patient) 26.1 Seconds (9.1-10.7)
[2019-06-02 20:06] LABS: INR 2.74 INR (0.92-1.08)
[2019-06-02 20:18] LABS: ALT 27 U/L (19-67); AST 25 U/L (0-48); Albumin * 3.7 gm/dl (3.4-5.0); Alkaline Phosphatase * 78 U/L (50-170); Anion Gap 14.9 mmol/L (6.8-13.8); BNP * 37 pg/mL (5-205); BUN/Creatinine Ratio 18.1 (9.0-21.6); Bilirubin, Total 0.6 mg/dL (0.0-1.1); Blood Urea Nitrogen 15 mg/dL (3-23); Ca. Corrected For Albumin 9.2 mg/dL (8.4-10.2); Calcium * 9.3 mg/dL (7.9-10.9); Carbon Dioxide 27.3 mmol/L (24-32.6); Chloride 106 mmol/L (97-106); Glucose * 113 mg/dL (70-110); Potassium 4.2 mmol/L (3.4-4.6); Sodium 144 mmol/L (132-142); Troponin I Less than 0.017 ng/mL (0.00-0.10)
[2019-06-02] MEDS ORDERED: NALBUPHINE HCL 20 MG/ML AMPUL IV ONE (20:53)
[2019-06-02 21:04] LABS: Urine Bilirubin Negative (NEGATIVE); Urine Blood Negative /ul (NEGATIVE); Urine Ketone Negative (NEGATIVE); Urine Nitrite Negative (NEGATIVE); Urine Protein Negative (NEGATIVE); Urine Specific Gravity 1.015 SP.GR. (1.005-1.010); Urine Urobilinogen Normal (NORMAL)
[2019-06-02 21:11] LABS: Urine Appearance Clear (CLEAR); Urine Color Yellow
[2019-06-02 21:12] LABS: Urine Bacteria TRACE; Urine RBC None Seen /hpf (0-5); Urine WBC 0-5 /hpf (0-5)
[2019-06-02] MEDS ORDERED: ACETAMINOPHEN 500 MG TABLET PO ONE (21:17)
[2019-06-02] MEDS ORDERED: KETOROLAC TROMETHAMINE 30 MG/ML VIAL IV ONE (22:57)
[2019-06-03] MEDS ORDERED: INSULIN GLARGINE,HUM.REC.ANLOG 100 UNITS/ML VIAL SC SCH ×2 (00:42→21:00)
[2019-06-03] MEDS ORDERED: traMADol HCL 50 MG TABLET PO PRN (00:43)
[2019-06-03] MEDS ORDERED: WARFARIN SODIUM 5 MG TABLET PO ONE (00:53)
[2019-06-03] MEDS ORDERED: WARFARIN SODIUM 1 MG TABLET ONE (01:10)
[2019-06-03] MEDS ORDERED: INSULIN LISPRO 100 UNITS/ML VIAL SC SCH (07:00)
[2019-06-03] MEDS ORDERED: ACETAMINOPHEN 500 MG TABLET PO PRN (07:05)
[2019-06-03] MEDS ORDERED: tiZANidine HCL 4 MG TABLET PO PRN (08:32)
[2019-06-03] MEDS ORDERED: POTASSIUM CHLORIDE 10 MEQ TABLET.SA PO SCH (09:00)
[2019-06-03] MEDS ORDERED: INSULIN LISPRO SQ SCH (09:00)
[2019-06-03] MEDS ORDERED: traMADol HCL 50 MG TABLET PO SCH (09:00)
[2019-06-03] MEDS ORDERED: MAGNESIUM OXIDE 400 MG TABLET PO SCH (09:00)
[2019-06-03] MEDS ORDERED: LOSARTAN POTASSIUM 50 MG TABLET PO SCH (09:00)
[2019-06-03] MEDS ORDERED: PANTOPRAZOLE SODIUM 40 MG TABLET.EC PO SCH (09:00)
[2019-06-03] MEDS ORDERED: CHOLECALCIFEROL 1,000 UNIT CAPSULE PO SCH ×2 (09:00)
[2019-06-03] MEDS ORDERED: CHOLECALCIFEROL 5,000 UNIT TABLET PO SCH (09:00)
[2019-06-03] MEDS ORDERED: FUROSEMIDE 40 MG TABLET PO SCH (09:00)
[2019-06-03 09:05] LABS: Hematocrit 43.8 % (37.0-47.0); Hemoglobin 13.6 gm/dL (12.5-16.0); Mean Corpuscular Hemoglobin 27.6 pg (27-31); Mean Corpuscular Hgb Conc 31.1 g/dl (32-36); Neutrophil # 13.3 K/mm3 (1.3-6.0); Neutrophil % 89.9 % (42-75.0); Platelet Count 173 K/mm3 (150-450); Red Blood Count 4.92 M/mm3 (4.2-5.4); White Blood Count 14.8 K/mm3 (4.0-10.5)
[2019-06-03 09:14] LABS: Prothrombin Time (Patient) 23.5 Seconds (9.1-10.7)
[2019-06-03 09:15] LABS: INR 2.46 INR (0.92-1.08)
[2019-06-03 09:20] LABS: Albumin * 3.2 gm/dl (3.4-5.0); Bilirubin, Total 0.8 mg/dL (0.0-1.1); Ca. Corrected For Albumin 9.2 mg/dL (8.4-10.2); Calcium * 8.9 mg/dL (7.9-10.9); Carbon Dioxide 24.9 mmol/L (24-32.6); Potassium 4.9 mmol/L (3.4-4.6); Total Protein 6.8 gm/dL (6.2-8.2)
[2019-06-03] MEDS: glipiZIDE 10 MG TABLET PO SCH ×2 (09:26→16:55)
[2019-06-03] MEDS: INSULIN LISPRO 100 UNITS/ML VIAL SC SCH ×2 (11:48→17:48)
--- NOTE | 2019-06-03 16:49 | HPDIS ---
Chief Complaint - Chief Complaint Date of Service: 06/03/19 Time of Service: 08:45 Chief Complaint: Shortness of breath, cough, weakness History of Present Illness: Gabi is a 59 yo female with history of pulmonary embolism on chronic coumadin therapy. She reports she has been having difficulty with shortness of breath for the past 4 years, but has more recently been having worsening cough, shortness of breath, and weakness. She presented to the [facility] ER for evaluation of these worsening symptoms. In the ER she was found to have oxygen saturation at 79% on room air. She does not use oxygen at home. She was briefly placed on oxygen but was easily weaned off oxygen. She had bloodwork that showed elevated WBC at 12k, Urine with leukocyte esterase, and fevers. She had a chest xray with presumed pneumonia by ER physician and was started on rocephin. Medical History (Updated 06/03/19 @ 10:00 by Ciera Carias RN) Anxiety (Chronic) Depression (Chronic) Hyperlipemia (Chronic) Back pain (Chronic) Diabetes mellitus (Chronic) Pulmonary emboli (Chronic) Hypertension (Chronic) Peripheral neuropathy (Chronic) DVT (deep venous thrombosis) (Chronic) UTI (urinary tract infection) (Resolved) Type II diabetes mellitus (Chronic) Anticoagulant long-term use (Chronic) Abdominal pain (Resolved) Myalgia (Resolved) Fatigue (Chronic) Arthritis Chronic pain Clotting disorder Diabetes type 2, controlled Disc degeneration, lumbar Disc disease, degenerative, cervical Esophageal stricture Hyperlipidemia Kidney stones Menometrorrhagia Morbid obesity Neuropathy Ovarian cyst Onset Date: ~2002 L-8.5cm ovarian cyst Pulmonary embolism Sleep apnea Umbilical hernia distress, antepartum Premature Labor Premature deliver Surgical History: Surgical History (Updated 08/16/18 @ 15:22 by Favian Flores MD) H/O section x2 H/O ovarian cystectomy 8 cm L H/O tubal ligation right History of appendectomy History of carpal tunnel release bilateral History of esophagogastroduodenoscopy (EGD) x5 History of left oophorectomy removed due to 8cm cyst History of tonsillectomy Family History: Family History (Updated 06/14/18 @ 07:41 by Marisel Nguyen) Daughter No problems noted. Daughter No problems noted. Son , congenital @ 5 days old No problems noted. Son No problems noted. Father Heart disease Emphysema, unspecified Mother Emphysema, unspecified CHF (congestive heart failure) Diabetes type 2 Grandmother , Maternal Hypoglycemia Grandfather , Maternal CVA (cerebral vascular accident) tooth infection went septic Son No problems noted. Sister Cancer Lung Grandfather , Paternal No problems noted. Grandmother , paternal No problems noted. Social History: Patient Lives/Resources Home Utilized Occupation Disabled Preferred Language Turkish Do you have any jewish or No cultural preference? Smoking Status Never smoker Have you smoked in the past 12 No months Do you dip or chew tobacco No Abuse History No History of abuse Psych History Hx of Anxiety,Hx of Depression Alcohol Use none Drug Use none (Last Updated 01/06/19 @ 13:04 by CORINE Doherty) No Social History Section defined Review Of Systems (GEN) - Review of Systems Generalized/Overall Review: Present: Weakness, Fever EENTM: Present: No Symptoms Reported Respiratory: Present: Cough, Shortness of Breath Cardiac: Present: Chest Pain, Other - swelling of right leg Abdominal: Absent: Nausea, Vomiting, Abdominal Pain Genitourinary: Absent: Hematuria, Dysuria Skin: Present: No Symptoms Reported Immunizations: IMMUNIZATION HX Immunizations Up to Date Yes History of Influenza Vaccine Yes Hx Pneumococcal Vaccination Yes Allergies/Adverse Reactions: Allergies Allergy/AdvReac Type Severity Reaction Status Date / Time nitrofurantoin Allergy Severe Hives Verified 06/02/19 18:08 [From Macrobid] nitrofurantoin Allergy Severe Hives, Verified 06/02/19 18:08 macrocrystalline fever [From Macrobid] Tetanus Vaccines and Toxoid Allergy Severe fever Verified 06/02/19 18:08 [Tetanus] amitriptyline AdvReac Severe Suicidal, Verified 06/02/19 18:08 hospitalized metformin AdvReac Severe Rash Verified 06/02/19 18:08 morphine AdvReac Severe Vomiting Verified 06/02/19 18:08 gabapentin AdvReac Verified 06/02/19 18:08 lisinopril AdvReac Verified 06/02/19 18:08 Home Medications: HOME MEDICATIONS ascorbic acid (vitamin C) 1,000 mg tablet 1 g PO BID tab 06/17/18 [Last Taken Unknown] magnesium 250 mg tablet 2 tab PO BID tab 06/17/18 [Last Taken Unknown] warfarin 1 mg tablet 2 mg PO DAILY #60 tab 08/12/18 [Last Taken 06/01/19 21:00] blood-glucose meter,continuous-transmitter See Dose Instructions .ROUTE .MEDSUPPLY #1 ea 10/22/18 [Last Taken Unknown] glipizide 10 mg tablet 20 mg PO BIDAC #360 tab 11/03/18 [Last Taken Unknown] potassium chloride ER 10 mEq tablet,extended release(part/cryst) 10 meq PO TID #270 tab 11/03/18 [Last Taken Unknown] warfarin 5 mg tablet 5 mg PO DAILY #30 tab 11/03/18 [Last Taken 06/01/19 21:00] tramadol 50 mg tablet 50 mg PO BID #60 tab 11/04/18 [Last Taken Unknown] pantoprazole 40 mg tablet,delayed release 40 mg PO DAILY #90 tab 11/19/18 [Last Taken Unknown] furosemide 40 mg tablet 80 mg PO DAILY 90 Days #180 tab 12/12/18 [Last Taken Unknown] insulin syringe U-100 with needle 1 mL 31 gauge x 5/16" See Dose Instructions .ROUTE .MEDSUPPLY #300 ea 12/12/18 [Last Taken Unknown] tizanidine 4 mg tablet 4 mg PO TID PRN #90 tab 12/12/18 [Last Taken Unknown] blood sugar diagnostic strips See Dose Instructions .ROUTE .MEDSUPPLY #400 ea 12/15/18 [Last Taken Unknown] Dulaglutide [Trulicity] 1.5 mg SQ Q7D 04/10/19 [Last Taken Unknown] Insulin Glargine,Hum.rec.anlog [Lantus] 44 units SC HS 04/10/19 [Last Taken 06/01/19 22:00] Insulin Lispro [Humalog Kwikpen U-100] 14 unit SQ TID 04/10/19 [Last Taken 06/02/19 12:00] Cefdinir [Omnicef] 300 mg PO Q12H #20 cap 06/03/19 [Last Taken Unknown] Cholecalciferol [Vitamin D] 6,000 unit PO DAILY 06/03/19 [Last Taken Unknown] Losartan Potassium 100 mg PO DAILY 06/03/19 [Last Taken Unknown] Exam - Exam Vital Signs: Vital Signs - Last Taken Temp 36.7 C 06/03/19 11:30 Pulse 77 06/03/19 11:30 Resp 18 06/03/19 11:30 BP 105/45 06/03/19 11:30 Pulse Ox 99 06/03/19 11:30 Constitutional: Present: Alert, Oriented x3, Cooperative ENT Exam: Present: hearing grossly normal Eye Exam: bilateral eye: normal inspection Respiratory: Present: lungs clear, no respiratory distress, decreased breath sounds - bilateral base Cardiovascular/Chest: Present: regular rate, rhythm, no murmur Skin Exam: Present: normal color, warm/dry, no cyanosis Appearance: Present: appropriate appearance, appropriate insight, other - Diff iculty finding words Eye contact: Present: cooperative, good eye contact, normal speech Thoughts: Present: normal thought pattern Diagnostic Studies: Abnormal Lab Results 06/02/19 06/02/19 06/02/19 Range/Units 19:45 19:45 19:45 WBC 12.3 H (4.0-10.5) K/mm3 MCHC 31.3 L (32-36) g/dl RDW 15.6 H (11.5-14.0) % Immature Gran % (Auto) (0.001-0.429) % Immature Gran # (Auto) 0.05 H (0.000-0.0310) K/mm3 Neutrophils % 87.7 H (42-75.0) % Lymphocytes % 5.8 L (20-51) % Neutrophils # 10.7 H (1.3-6.0) K/mm3 Lymphocytes # 0.71 L (1.5-3.5) k/mm3 PT 26.1 H (9.1-10.7) Seconds INR (Anticoag Therapy) 2.74 H (0.92-1.08) INR PTT (Pepin) 33.0 H (24-32) Seconds Sodium 144 H (132-142) mmol/L Plasma Sodium 144 H (130-142) mmol/L Potassium (3.4-4.6) mmol/L Anion Gap 14.9 H (6.8-13.8) mmol/L BUN (3-23) mg/dL BUN/Creatinine Ratio (9.0-21.6) Random Glucose 113 H (70-110) mg/dL Albumin (3.4-5.0) gm/dl Ur Leukocyte Esterase (NEGATIVE) /ul 06/02/19 06/03/19 06/03/19 Range/Units 20:57 09:00 09:00 WBC 14.8 H D (4.0-10.5) K/mm3 MCHC 31.1 L (32-36) g/dl RDW 16.0 H (11.5-14.0) % Immature Gran % (Auto) 0.50 H (0.001-0.429) % Immature Gran # (Auto) 0.07 H (0.000-0.0310) K/mm3 Neutrophils % 89.9 H (42-75.0) % Lymphocytes % 3.5 L (20-51) % Neutrophils # 13.3 H (1.3-6.0) K/mm3 Lymphocytes # 0.52 L (1.5-3.5) k/mm3 PT 23.5 H (9.1-10.7) Seconds INR (Anticoag Therapy) 2.46 H (0.92-1.08) INR PTT (Ana M) (24-32) Seconds Sodium (132-142) mmol/L Plasma Sodium (130-142) mmol/L Potassium (3.4-4.6) mmol/L Anion Gap (6.8-13.8) mmol/L BUN (3-23) mg/dL BUN/Creatinine Ratio (9.0-21.6) Random Glucose (70-110) mg/dL Albumin (3.4-5.0) gm/dl Ur Leukocyte Esterase 75 H (NEGATIVE) /ul // Range/Units 09:00 WBC (4.0-10.5) K/mm3 MCHC (32-36) g/dl RDW (11.5-14.0) % Immature Gran % (Auto) (0.001-0.429) % Immature Gran # (Auto) (0.000-0.0310) K/mm3 Neutrophils % (42-75.0) % Lymphocytes % (20-51) % Neutrophils # (1.3-6.0) K/mm3 Lymphocytes # (1.5-3.5) k/mm3 PT (9.1-10.7) Seconds INR (Anticoag Therapy) (0.92-1.08) INR PTT (Pepin) (24-32) Seconds Sodium (132-142) mmol/L Plasma Sodium (130-142) mmol/L Potassium 4.9 H (3.4-4.6) mmol/L Anion Gap (6.8-13.8) mmol/L BUN 24 H D (3-23) mg/dL BUN/Creatinine Ratio 24.0 H (9.0-21.6) Random Glucose 191 H D (70-110) mg/dL Albumin 3.2 L (3.4-5.0) gm/dl Ur Leukocyte Esterase (NEGATIVE) /ul Microbiology 06/02/19 20:57 Urine Culture - Preliminary Urine,Voided No Growth Laboratory Results WBC 14.8 K/mm3 (4.0-10.5) H D 06/03/19 09:00 RBC 4.92 M/mm3 (4.2-5.4) 06/03/19 09:00 Hgb 13.6 gm/dL (12.5-16.0) 06/03/19 09:00 Hct 43.8 % (37.0-47.0) 06/03/19 09:00 MCV 89.0 fl (78-100) 06/03/19 09:00 MCH 27.6 pg (27-31) 06/03/19 09:00 MCHC 31.1 g/dl (32-36) L 06/03/19 09:00 RDW 16.0 % (11.5-14.0) H 06/03/19 09:00 Plt Count 173 K/mm3 (150-450) 06/03/19 09:00 MPV 10.0 fl (8-12.5) 06/03/19 09:00 Immature Gran % (Auto) 0.50 % (0.001-0.429) H 06/03/19 09:00 Immature Gran # (Auto) 0.07 K/mm3 (0.000-0.0310) H 06/03/19 09:00 89.9 % (42-75.0) H 06/03/19 09:00 3.5 % (20-51) L 06/03/19 09:00 5.9 % (0.0-9) 06/03/19 09:00 0.0 % (0.0-3.0) 06/03/19 09:00 0.2 % (0.0-1.0) 06/03/19 09:00 Nucleated RBC % 0.0 k/mm3 (0-1) 06/03/19 09:00 13.3 K/mm3 (1.3-6.0) H 06/03/19 09:00 0.52 k/mm3 (1.5-3.5) L 06/03/19 09:00 0.9 k/mm3 (0.0-1.0) 06/03/19 09:00 0.0 k/mm3 (0.0-0.7) 06/03/19 09:00 Absolute Basophils 0.0 k/mm3 (0.0-0.1) 06/03/19 09:00 PT 23.5 Seconds (9.1-10.7) H 06/03/19 09:00 INR (Anticoag Therapy) 2.46 INR (0.92-1.08) H 06/03/19 09:00 PTT (Ana M) 33.0 Seconds (24-32) H 06/02/19 19:45 0.22 ug/mL (0.19-0.49) D 06/02/19 19:45 Sodium 138 mmol/L (132-142) 06/03/19 09:00 139 mmol/L (130-142) 06/03/19 09:00 Potassium 4.9 mmol/L (3.4-4.6) H 06/03/19 09:00 Chloride 105 mmol/L (97-106) 06/03/19 09:00 Carbon Dioxide 24.9 mmol/L (24-32.6) 06/03/19 09:00 13.0 mmol/L (6.8-13.8) 06/03/19 09:00 BUN 24 mg/dL (3-23) H D 06/03/19 09:00 1.00 mg/dL (0.4-1.4) 06/03/19 09:00 Est GFR (Non-Af Amer) 61 mL/min (60-130) 06/03/19 09:00 24.0 (9.0-21.6) H 06/03/19 09:00 191 mg/dL (70-110) H D 06/03/19 09:00 1.3 mmol/L (0.4-2.0) 06/02/19 19:45 Calcium 8.9 mg/dL (7.9-10.9) 06/03/19 09:00 Calcium Adj for Albumin 9.2 mg/dL (8.4-10.2) 06/03/19 09:00 0.8 mg/dL (0.0-1.1) 06/03/19 09:00 AST 20 U/L (0-48) 06/03/19 09:00 ALT 28 U/L (19-67) 06/03/19 09:00 72 U/L (50-170) 06/03/19 09:00 Less than 0.017 ng/mL (0.00-0.10) 06/02/19 19:45 B-Natriuretic Peptide 37 pg/mL (5-205) 06/02/19 19:45 6.8 gm/dL (6.2-8.2) 06/03/19 09:00 3.2 gm/dl (3.4-5.0) L 06/03/19 09:00 Yellow 06/02/19 20:57 Clear (CLEAR) 06/02/19 20:57 6.0 pH (5.0-7.0) 06/02/19 20:57 Ur Specific [place] 1.015 SP.GR. (1.005-1.010) 06/02/19 20:57 Negative mg/dL (NEGATIVE) 06/02/19 20:57 Negative mg/dL (NEGATIVE) 06/02/19 20:57 Negative mg/dL (NEGATIVE) 06/02/19 20:57 Negative /ul (NEGATIVE) 06/02/19 20:57 Negative (NEGATIVE) 06/02/19 20:57 Negative mg/dl (NEGATIVE) 06/02/19 20:57 Normal EU/dl (NORMAL) 06/02/19 20:57 Ur Leukocyte Esterase 75 /ul (NEGATIVE) H 06/02/19 20:57 None seen /hpf (0-5) 06/02/19 20:57 0-5 /hpf (0-5) 06/02/19 20:57 Ur Epithelial Cells 0-5 /hpf (0-5) 06/02/19 20:57 Trace (NONE) 06/02/19 20:57 Culture to follow 06/02/19 20:57 Assessment/Plan - Narrative Narrative: Gabi is a 59 yo female with shortness of breath, fever, and leukocytosis. Chest Xray read by radiology did not show evidence of pneumonia. She has Leukocyte esterase on UA with culture pending. Due to shortness of breath and chest pain with history of pulmonary embolism I will get CTA of chest. This will evaluate for pulmonary embolism, but also give a better view of her lungs. She was only briefly hypoxic, this is likely from atelectasis. She does not meet criteria for inpatient admission, so will admit to observation. Will monitor for further episodes of hypoxia. - Assessment/Plan (1) Community acquired pneumonia due to Streptococcus pneumoniae Problem: Acute (2) Insulin dependent diabetes mellitus Problem: Acute (1) Community acquired pneumonia due to Streptococcus pneumoniae Problem: Acute (2) Insulin dependent diabetes mellitus Problem: Chronic Description of Stay: Gabi was admitted for shortness of breath, weakness, fever, and leukocytosis to observation. She had a CTA chest due to shortness of breath, chest pain, and history of PE. CTA chest showed right lower lobe pneumonia. She had a brief period of hypoxia in the ER that was likely due to atelectasis, but no further episodes on the floor. Based on Curb 65 she had one risk factor with elevated BUN that puts her in Low risk group: 2.7% 30-day mortality. This indicates she would likely tolerate outpatient treatment for pneumonia. She was given a dose of ceftriaxone and will be switched to cefdinir for outpatient treatment. She will follow up with her provider in 1 week and will follow up with [facility] on Saturday due to starting antibiotics. Procedures Performed: none Results and Findings: Pending Mircobiology Results 06/02/19 20:57 Urine,Voided Urine Culture - Preliminary No Growth Lab Pending Results 06/02/19 19:45: WBC 12.3 H, RBC 5.30, Hgb 14.6, Hct 46.7, MCV 88.1, MCH 27.5, MCHC 31.3 L, RDW 15.6 H, Plt Count 218, MPV 9.9, Immature Gran % (Auto) 0.40, Immature Gran # (Auto) 0.05 H, Neutrophils % 87.7 H, Lymphocytes % 5.8 L, Monocytes % 5.3, Eosinophils % 0.4, Basophils % 0.4, Nucleated RBC % 0.0, Neutrophils # 10.7 H, Lymphocytes # 0.71 L, Monocytes # 0.7, Eosinophils # 0.1, Absolute Basophils 0.1 06/02/19 19:45: PT 26.1 H, INR (Anticoag Therapy) 2.74 H, PTT (Ana M) 33.0 H 06/02/19 19:45: Sodium 144 H, Plasma Sodium 144 H, Potassium 4.2, Chloride 106, Carbon Dioxide 27.3, Anion Gap 14.9 H, BUN 15, Creatinine 0.83, Est GFR (Non-Af Amer) 75, BUN/Creatinine Ratio 18.1, Random Glucose 113 H, Calcium 9.3, Calcium Adj for Albumin 9.2, Total Bilirubin 0.6, AST 25, ALT 27, Alkaline Phosphatase 78, Troponin I Less than 0.017, B-Natriuretic Peptide 37, Total Protein 7.0, Albumin 3.7 06/02/19 19:45: D-Dimer 0.22 D 06/02/19 19:45: Lactic Acid, Venous 1.3 06/02/19 20:57: Urine Color Yellow, Urine Appearance Clear, Urine pH 6.0, Ur Specific [place] 1.015, Urine Protein Negative, Urine Glucose (UA) Negative, Urine Ketones Negative, Urine Blood Negative, Urine Nitrate Negative, Urine Bilirubin Negative, Urine Urobilinogen Normal, Ur Leukocyte Esterase 75 H, Urine RBC None seen, Urine WBC 0-5, Ur Epithelial Cells 0-5, Urine Bacteria Trace, Urine Culture Comments Culture to follow 06/03/19 09:00: WBC 14.8 H D, RBC 4.92, Hgb 13.6, Hct 43.8, MCV 89.0, MCH 27.6, MCHC 31.1 L, RDW 16.0 H, Plt Count 173, MPV 10.0, Immature Gran % (Auto) 0.50 H, Immature Gran # (Auto) 0.07 H, Neutrophils % 89.9 H, Lymphocytes % 3.5 L, Monocytes % 5.9, Eosinophils % 0.0, Basophils % 0.2, Nucleated RBC % 0.0, Neutrophils # 13.3 H, Lymphocytes # 0.52 L, Monocytes # 0.9, Eosinophils # 0.0, Absolute Basophils 0.0 06/03/19 09:00: PT 23.5 H, INR (Anticoag Therapy) 2.46 H 06/03/19 09:00: Sodium 138, Plasma Sodium 139, Potassium 4.9 H, Chloride 105, Carbon Dioxide 24.9, Anion Gap 13.0, BUN 24 H D, Creatinine 1.00, Est GFR (Non- Af Amer) 61, BUN/Creatinine Ratio 24.0 H, Random Glucose 191 H D, Calcium 8.9, Calcium Adj for Albumin 9.2, Total Bilirubin 0.8, AST 20, ALT 28, Alkaline Phosphatase 72, Total Protein 6.8, Albumin 3.2 L Discharge Location: Home Disposition: Home self-care Condition: Stable Discharge Activity: Activity as tolerated Discharge Diet: Consistent carbs Referrals: Trinity Rothman DO [Primary Care Provider] - [facility] [Pharmacy] - 06/08/19 Problem Oriented Discharge Instructions to Patient/Family: Community-Acquired Pneumonia, Adult, [id number] Additional Patient Instructions (free text): -Please make TCM appointment unless longterm discharge, or if following up with outside provider. Thank you! Carolina @ [facility] [phone] or Ashley at [facility] [phone]. Send home with cornet and incentive spirometer. Prescriptions (Any new or edited meds): Cefdinir [Omnicef] 300 mg PO Q12H #20 cap Complete Home Medications List: Complete Home Medication List: ascorbic acid (vitamin C) 1,000 mg tablet 1 g PO BID tab 06/17/18 magnesium 250 mg tablet 2 tab PO BID tab 06/17/18 warfarin 1 mg tablet 2 mg PO DAILY #60 tab 08/12/18 blood-glucose meter,continuous-transmitter See Dose Instructions .ROUTE .MEDSUPPLY #1 ea 10/22/18 glipizide 10 mg tablet 20 mg PO BIDAC #360 tab 11/03/18 potassium chloride ER 10 mEq tablet,extended release(part/cryst) 10 meq PO TID #270 tab 11/03/18 warfarin 5 mg tablet 5 mg PO DAILY #30 tab 11/03/18 tramadol 50 mg tablet 50 mg PO BID #60 tab 11/04/18 pantoprazole 40 mg tablet,delayed release 40 mg PO DAILY #90 tab 11/19/18 furosemide 40 mg tablet 80 mg PO DAILY 90 Days #180 tab 12/12/18 insulin syringe U-100 with needle 1 mL 31 gauge x 5/16" See Dose Instructions .ROUTE .MEDSUPPLY #300 ea 12/12/18 tizanidine 4 mg tablet 4 mg PO TID PRN #90 tab 12/12/18 blood sugar diagnostic strips See Dose Instructions .ROUTE .MEDSUPPLY #400 ea 12/15/18 Dulaglutide [Trulicity] 1.5 mg SQ Q7D 04/10/19 Insulin Glargine,Hum.rec.anlog [Lantus] 44 units SC HS 04/10/19 Insulin Lispro [Humalog Kwikpen U-100] 14 unit SQ TID 04/10/19 Cefdinir [Omnicef] 300 mg PO Q12H #20 cap 06/03/19 Cholecalciferol [Vitamin D] 6,000 unit PO DAILY 06/03/19 Losartan Potassium 100 mg PO DAILY 06/03/19
[2019-06-03] MEDS ORDERED: WARFARIN SODIUM 1 MG TABLET PO SCH (17:00)
[2019-06-03] MEDS ORDERED: WARFARIN SODIUM 5 MG, WARFARIN SODIUM 4 MG PO SCH ×2 (17:00)
[2019-06-03] MEDS ORDERED: WARFARIN SODIUM 5 MG TABLET PO SCH (17:00)
[2019-06-03 17:48] VITALS: BP 129/69
[2019-06-04] MEDS ORDERED: FUROSEMIDE 80 MG TABLET PO SCH (09:00)
[2019-06-04] MEDS ORDERED: WARFARIN SODIUM 5 MG, WARFARIN SODIUM 2 MG PO SCH ×2 (17:00)
== END 2019-06-03 18:11 | disposition home or self-care (01) ==
LOC: ER 18:02 → INTOOBSV 22:06 → MS 22:06
PROVIDERS: ADMIT Family Medicine; ATTEND Family Medicine
CPT/HCPCS: 36415; 71010; 71045; 71275; 74019; 74020; 80053; 81001; 83519; 83605; 83880; 84484; 85025; 85379; 85610; 85730; 87040; 87086; 93005; 96361; 96365; 96372; 96375; 99284; G0378; J2405; Q9967